=== PATIENT | male | born 1950 | race Caucasian/White ===

== ENCOUNTER 2017-11-20 08:00 | Outpatient (CLI) | payer MEDICARE ==
[2017-11-20 12:23] LABS: ALBUMIN 3.8 g/dL (3.2-5.5); ALBUMIN/GLOBULIN RATIO 1.1 (1.0-2.2); ALKALINE PHOSPHATASE 67 IU/L (42-121); ALT ALANINE AMINOTRANSFERASE 22 IU/L (10-60); AST ASPARTATE AMINOTRANSFERASE 23 IU/L (10-42); BILIRUBIN,TOTAL 0.9 mg/dL (0.2-1.0); BUN - BLOOD UREA NITROGEN 15 mg/dL (6-20); CALCIUM 8.9 mg/dL (8.5-10.3); CARBON DIOXIDE - CO2 28 mmol/L (21-32); CHLORIDE 100 mmol/L (101-111); CHOL/HDL RATIO 4.4 (<5.0); CHOLESTEROL 253 mg/dL; CREATININE 1.2 mg/dL (0.6-1.2); GFR - MDRD 61 (>89); GLUCOSE 95 mg/dL (70-100); HDL CHOLESTEROL 57 mg/dL; LDL CHOLESTEROL,CALCULATED 154 mg/dL; LDL/HDL RATIO 2.7 (<3.6); SODIUM 134 mmol/L (135-145); TOTAL PROTEIN 7.2 g/dL (6.7-8.2); VLDL CHOLESTEROL 42 mg/dL
[2017-11-20 12:38] LABS: BASOPHILS % (AUTO) 0.7 %; EOSINOPHILS # (AUTO) 0.1 10^3/uL (0.0-0.7); EOSINOPHILS % (AUTO) 1.7 %; HGB - HEMOGLOBIN 15.7 g/dL (14.0-18.0); LYMPHOCYTES # (AUTO) 1.6 10^3/uL (1.5-3.5); LYMPHOCYTES % (AUTO) 28.7 %; MEAN CORPUSCULAR HEMOGLOBIN 31.2 pg (27.0-31.0); MEAN CORPUSCULAR HGB CONC 32.7 g/dL (32.0-36.0); MEAN CORPUSCULAR VOLUME 95.4 fL (80.0-94.0); MEAN PLATELET VOLUME 8.2 fL (7.4-11.4); MONOCYTES # (AUTO) 0.6 10^3/uL (0.0-1.0); NEUTROPHILS # (AUTO) 3.3 10^3/uL (1.5-6.6); NEUTROPHILS % (AUTO) 57.9 %; PLT - PLATELET COUNT 288 10^3/uL (130-450); RED BLOOD COUNT 5.04 10^6/uL (4.70-6.10); RED CELL DISTRIBUTION WIDTH 13.6 % (12.0-15.0); WHITE BLOOD COUNT 5.6 x10^3/uL (4.8-10.8)
== END 2017-11-20 08:01 | disposition home or self-care (01) ==
LOC: LAB.WCP 08:00
PROVIDERS: ATTEND Family Medicine
DX: Z79.899 Other long term (current) drug therapy (principal); Z12.5 Encounter for screening for malignant neoplasm of prostate; Z72.0 Tobacco use; Z13.220 Encounter for screening for lipoid disorders
CPT/HCPCS: 36415; 80053; 80061; 85025; G0103; 83721; 84153

== ENCOUNTER 2019-03-10 08:00 | Outpatient (CLI) | payer MEDICARE ==
[2019-03-10 12:24] LABS: BASOPHILS % (AUTO) 0.4 %; EOSINOPHILS # (AUTO) 0.1 10^3/uL (0.0-0.7); EOSINOPHILS % (AUTO) 1.5 %; HGB - HEMOGLOBIN 14.7 g/dL (14.0-18.0); LYMPHOCYTES # (AUTO) 1.5 10^3/uL (1.5-3.5); LYMPHOCYTES % (AUTO) 29.2 %; MEAN CORPUSCULAR HEMOGLOBIN 29.2 pg (27.0-31.0); MEAN CORPUSCULAR HGB CONC 31.4 g/dL (32.0-36.0); MEAN CORPUSCULAR VOLUME 92.9 fL (80.0-94.0); MONOCYTES # (AUTO) 0.5 10^3/uL (0.0-1.0); MONOCYTES % (AUTO) 10.1 %; NEUTROPHILS % (AUTO) 58.2 %; PLT - PLATELET COUNT 318 10^3/uL (130-450); RED BLOOD COUNT 5.04 10^6/uL (4.70-6.10); RED CELL DISTRIBUTION WIDTH 12.9 % (12.0-15.0); WHITE BLOOD COUNT 5.2 x10^3/uL (4.8-10.8)
[2019-03-10 12:59] LABS: ALBUMIN 3.7 g/dL (3.2-5.5); ALBUMIN/GLOBULIN RATIO 1.2 (1.0-2.2); ALKALINE PHOSPHATASE 69 IU/L (42-121); ALT ALANINE AMINOTRANSFERASE 20 IU/L (10-60); AST ASPARTATE AMINOTRANSFERASE 21 IU/L (10-42); BILIRUBIN,TOTAL 0.7 mg/dL (0.2-1.0); BUN - BLOOD UREA NITROGEN 20 mg/dL (6-20); CALCIUM 8.8 mg/dL (8.5-10.3); CARBON DIOXIDE - CO2 27 mmol/L (21-32); CHLORIDE 103 mmol/L (101-111); CHOL/HDL RATIO 5.2 (<5.0); CHOLESTEROL 254 mg/dL; GFR - MDRD 75 (>89); GLUCOSE 97 mg/dL (70-100); HDL CHOLESTEROL 49 mg/dL; LDL CHOLESTEROL,CALCULATED 176 mg/dL; LDL/HDL RATIO 3.6 (<3.6); SODIUM 139 mmol/L (135-145); TOTAL PROTEIN 6.7 g/dL (6.7-8.2); VLDL CHOLESTEROL 29 mg/dL
== END 2019-03-10 23:59 | disposition home or self-care (01) ==
LOC: LAB.WCP 08:00
PROVIDERS: ATTEND Family Medicine
DX: Z00.00 Encounter for general adult medical examination without abnormal findings (principal); Z12.5 Encounter for screening for malignant neoplasm of prostate
CPT/HCPCS: 36415; 80061; 84443; 85025; G0103; 80053; 83721; 84153

== ENCOUNTER 2020-07-13 08:00 | Outpatient (CLI) | payer MEDICARE ==
[2020-07-13 12:32] LABS: BASOPHILS # (AUTO) 0.1 10^3/uL (0.0-0.1); BASOPHILS % (AUTO) 0.7 %; EOSINOPHILS # (AUTO) 0.1 10^3/uL (0.0-0.7); EOSINOPHILS % (AUTO) 1.1 %; HGB - HEMOGLOBIN 15.5 g/dL (14.0-18.0); LYMPHOCYTES # (AUTO) 1.9 10^3/uL (1.5-3.5); LYMPHOCYTES % (AUTO) 27.2 %; MEAN CORPUSCULAR HEMOGLOBIN 29.7 pg (27.0-31.0); MEAN CORPUSCULAR HGB CONC 32.1 g/dL (32.0-36.0); MEAN CORPUSCULAR VOLUME 92.5 fL (80.0-94.0); MEAN PLATELET VOLUME 10.1 fL (7.4-11.4); MONOCYTES # (AUTO) 0.6 10^3/uL (0.0-1.0); MONOCYTES % (AUTO) 8.3 %; NEUTROPHILS # (AUTO) 4.4 10^3/uL (1.5-6.6); NEUTROPHILS % (AUTO) 62.3 %; PLT - PLATELET COUNT 333 10^3/uL (130-450); RED BLOOD COUNT 5.22 10^6/uL (4.70-6.10); RED CELL DISTRIBUTION WIDTH 13.2 % (12.0-15.0)
[2020-07-13 13:13] LABS: ALBUMIN 3.9 g/dL (3.2-5.5); ALBUMIN/GLOBULIN RATIO 1.3 (1.0-2.2); ALKALINE PHOSPHATASE 77 IU/L (42-121); ALT ALANINE AMINOTRANSFERASE 25 IU/L (10-60); AST ASPARTATE AMINOTRANSFERASE 20 IU/L (10-42); BILIRUBIN,TOTAL 0.8 mg/dL (0.2-1.0); BUN - BLOOD UREA NITROGEN 21 mg/dL (6-20); CALCIUM 9.4 mg/dL (8.5-10.3); CARBON DIOXIDE - CO2 23 mmol/L (21-32); CHLORIDE 103 mmol/L (101-111); CHOL/HDL RATIO 4.2 (<5.0); CHOLESTEROL 240 mg/dL; GLUCOSE 111 mg/dL (70-100); HDL CHOLESTEROL 57 mg/dL; LDL CHOLESTEROL,CALCULATED 154 mg/dL; LDL/HDL RATIO 2.7 (<3.6); VLDL CHOLESTEROL 29 mg/dL
== END 2020-07-13 23:59 | disposition home or self-care (01) ==
LOC: LAB.WCP 08:00
PROVIDERS: ATTEND Nurse Practitioner Family
DX: R03.0 Elevated blood-pressure reading, without diagnosis of hypertension (principal); Z72.0 Tobacco use; Z12.5 Encounter for screening for malignant neoplasm of prostate
CPT/HCPCS: 36415; 80053; 80061; 84443; 85025; G0103; 83721; 84153

== ENCOUNTER 2020-10-01 07:23 | Outpatient (CLI) | payer MEDICARE ==
--- NOTE | 2020-10-01 08:40 | XRAY Report ---
PROCEDURE: Lumbar Spine 2 View INDICATIONS: RIGHT SCIATICA TECHNIQUE: 2 views of the lumbar spine were acquired. COMPARISON: None. FINDINGS: No fracture. Anatomic alignment. Mild narrowing of the L4-L5 and L5-S1 disc spaces. Multilevel spondy lytic/degenerative endplate changes. Diffuse facet arthropathy. Soft tissues: Overlying bowel gas pattern is normal. No suspicious soft tissue calcifications. IMPRESSION: Lower lumbar spondylosis and facet arthropathy. Reviewed by: Ash Choi MD on 10/01/2020 8:39 AM PDT Approved by: Ash Choi MD on 10/01/2020 8:39 AM PDT Station ID: [id number]
== END 2020-10-01 07:24 | disposition home or self-care (01) ==
LOC: DI 07:23
PROVIDERS: ATTEND Physician Assistant Medical
DX: M47.816 Spondylosis without myelopathy or radiculopathy, lumbar region (principal)

== ENCOUNTER 2020-10-11 07:07 | Outpatient (CLI) | payer MEDICARE ==
--- NOTE | 2020-10-11 11:05 | MRI Report ---
PROCEDURE: Lumbar Spine W/O INDICATIONS: RT SCIATICA TECHNIQUE: Noncontrast sagittal T1 spin echo and T2 fast echo, sagittal STIR, axial T1 and T2 fast spin echo thr ough the lumbar spine. In cases with scoliosis, additional coronal T2 fast spin echo may be performe d. COMPARISON: Plain films dated 10/01/2020. FINDINGS: Image quality: Excellent. Alignment and Curvature: 5 lumbar type vertebral bodies are present by plain film. Mild, grade 1 ret rolisthesis of L3 on L4, L4 on L5, and L5 on S1. There is loss of normal lumbar lordosis. Bone Marrow: Marrow is of normal overall signal. No acute vertebral body compression fractures. Th ere is minimal reactive signal within the end plates adjacent to the L2-L3 and L4-L5 intervertebral d iscs. Moderate reactive signal within the end plates adjacent to the L5-S1 intervertebral disc. Spinal Cord: Conus medullaris terminates at the upper L2 level. Visualized cord demonstrates normal signal and size. Paraspinous Soft Tissues: No paravertebral masses. T12-L1: Mild disc height loss and desiccation. Mild facet and ligament flavum hypertrophy. No signif icant canal, nor foraminal stenosis. L1-L2: Mild disc desiccation and diffuse disc bulge. Mild facet and ligament flavum hypertrophy. M ild canal stenosis. No foraminal stenosis. L2-L3: Mild disc desiccation and diffuse disc bulge. Mild facet and ligament flavum hypertrophy. M ild canal stenosis. Mild bilateral foraminal stenosis. L3-L4: Mild disc desiccation and diffuse disc bulge. Mild facet and ligament flavum hypertrophy. Mi ld epidural lipomatosis. Mild canal stenosis. Mild bilateral foraminal stenosis. L4-L5: Mild disc desiccation and diffuse disc bulge. Mild facet and ligament flavum hypertrophy. Mi ld canal stenosis. Mild bilateral foraminal stenosis. L5-S1: Moderate disc height loss and desiccation. Mild diffuse disc bulge. Mild facet and ligament flavum hypertrophy. Mild canal stenosis. Moderate to severe right and mild left foraminal stenosis. M ild right L5 nerve root compression. Right lateral recess stenosis with possible mild compression of the right S1 nerve root within the lateral recess. IMPRESSION: 1. Multilevel degenerative disc and facet disease, in addition to epidural lipomatosis and ligamentum flavum hypertrophy. 2. Mild multilevel canal stenoses. 3. Multilevel foraminal stenoses, worst at L5-S1 on the right where there is associated intraforamina l nerve root compression. 4. Right lateral recess stenosis at L5-S1 with possible mild compression of the right S1 nerve root. 5. Recommend correlation with clinical symptoms to ascertain relevance of these findings. Reviewed by: Saima Licona MD on 10/11/2020 11:04 AM PDT Approved by: Saima Licona MD on 10/11/2020 11:04 AM PDT Station ID: [id number]
== END 2020-10-11 07:08 | disposition home or self-care (01) ==
LOC: DI 07:07
PROVIDERS: ATTEND Physician Assistant Medical
DX: M47.816 Spondylosis without myelopathy or radiculopathy, lumbar region (principal); M47.817 Spondylosis without myelopathy or radiculopathy, lumbosacral region; M51.36 Other intervertebral disc degeneration, lumbar region; M48.061 Spinal stenosis, lumbar region without neurogenic claudication; M48.07 Spinal stenosis, lumbosacral region; M51.17 Intervertebral disc disorders with radiculopathy, lumbosacral region

== ENCOUNTER 2021-03-25 07:14 | Outpatient (CLI) | payer MEDICARE ==
[2021-03-25 12:04] LABS: ALBUMIN 3.8 g/dL (3.2-5.5); ALBUMIN/GLOBULIN RATIO 1.2 (1.0-2.2); ALKALINE PHOSPHATASE 116 IU/L (42-121); ALT ALANINE AMINOTRANSFERASE 29 IU/L (10-60); AST ASPARTATE AMINOTRANSFERASE 22 IU/L (10-42); BILIRUBIN,TOTAL 0.6 mg/dL (0.2-1.0); BUN - BLOOD UREA NITROGEN 22 mg/dL (6-20); CALCIUM 9.1 mg/dL (8.5-10.3); CARBON DIOXIDE - CO2 27 mmol/L (21-32); CHLORIDE 102 mmol/L (101-111); CHOL/HDL RATIO 4.9 (<5.0); CHOLESTEROL 226 mg/dL; GFR - MDRD 74 (>89); GLUCOSE 110 mg/dL (70-100); HDL CHOLESTEROL 46 mg/dL; LDL CHOLESTEROL,CALCULATED 152 mg/dL; LDL/HDL RATIO 3.3 (<3.6); POTASSIUM 4.5 mmol/L (3.5-5.0); SODIUM 139 mmol/L (135-145); TRIGLYCERIDES 140 mg/dL; VLDL CHOLESTEROL 28 mg/dL
== END 2021-03-25 23:59 | disposition home or self-care (01) ==
LOC: LAB.WCP 07:14
PROVIDERS: ATTEND Physician Assistant Medical
DX: E78.5 Hyperlipidemia, unspecified (principal)
CPT/HCPCS: 36415; 80053; 80061; 83721

== ENCOUNTER 2021-05-10 08:00 | Outpatient (CLI) | payer MEDICARE ==
[2021-05-10 17:47] LABS: BASOPHILS # (AUTO) 0.1 10^3/uL (0.0-0.1); BASOPHILS % (AUTO) 0.7 %; EOSINOPHILS # (AUTO) 1.4 10^3/uL (0.0-0.7); EOSINOPHILS % (AUTO) 10.6 %; HCT - HEMATOCRIT 43.8 % (42.0-52.0); HGB - HEMOGLOBIN 13.6 g/dL (14.0-18.0); LYMPHOCYTES # (AUTO) 1.7 10^3/uL (1.5-3.5); LYMPHOCYTES % (AUTO) 12.5 %; MEAN CORPUSCULAR HEMOGLOBIN 27.1 pg (27.0-31.0); MEAN CORPUSCULAR HGB CONC 31.1 g/dL (32.0-36.0); MEAN CORPUSCULAR VOLUME 87.3 fL (80.0-94.0); MEAN PLATELET VOLUME 10.3 fL (7.4-11.4); MONOCYTES # (AUTO) 1.5 10^3/uL (0.0-1.0); MONOCYTES % (AUTO) 10.6 %; NEUTROPHILS # (AUTO) 8.9 10^3/uL (1.5-6.6); NEUTROPHILS % (AUTO) 64.9 %; PLT - PLATELET COUNT 431 10^3/uL (130-450); RED BLOOD COUNT 5.02 10^6/uL (4.70-6.10); RED CELL DISTRIBUTION WIDTH 12.6 % (12.0-15.0); WHITE BLOOD COUNT 13.6 x10^3/uL (4.8-10.8)
[2021-05-10 17:59] LABS: SLIDE REVIEW? Indicated
[2021-05-10 18:09] LABS: DIFFERENTIAL COMMENT MANUAL=AUTO DIFF; PLATELET ESTIMATE, MANUAL NORMAL (130-450,000) (NORMAL); PLATELET MORPHOLOGY NORMAL APPEARANCE (NORMAL); RBC MORPHOLOGY (MULTIPLE) NORMAL APPEARANCE (NORMAL)
[2021-05-10 20:20] LABS: ALBUMIN 3.3 g/dL (3.2-5.5); ALBUMIN/GLOBULIN RATIO 0.8 (1.0-2.2); BILIRUBIN,TOTAL 1.7 mg/dL (0.2-1.0); CALCIUM 8.9 mg/dL (8.5-10.3); POTASSIUM 4.6 mmol/L (3.5-5.0); TOTAL PROTEIN 7.7 g/dL (6.7-8.2)
== END 2021-05-10 23:59 ==
LOC: LAB.N 08:00
PROVIDERS: ATTEND Physician Assistant Medical
DX: R82.2 Biliuria (principal)
CPT/HCPCS: 36415; 80053; 83690; 85025

== ENCOUNTER 2021-05-17 19:47 | Outpatient (CLI) | payer MEDICARE | END 2021-05-17 19:48 | disposition critical access hospital (66) | LOC: EMS 19:47 | DX: R10.9 Unspecified abdominal pain (principal) | CPT/HCPCS: A0425; A0429 ==

== ENCOUNTER 2021-05-17 20:06 | Emergency (ER) | payer MEDICARE ==
[2021-05-17 20:24] LABS: BASOPHILS % (AUTO) 0.7 %; EOSINOPHILS % (AUTO) 9.3 %; HCT - HEMATOCRIT 41.3 % (42.0-52.0); HGB - HEMOGLOBIN 13.5 g/dL (14.0-18.0); LYMPHOCYTES % (AUTO) 8.2 %; MEAN CORPUSCULAR HEMOGLOBIN 27.3 pg (27.0-31.0); MEAN CORPUSCULAR HGB CONC 32.7 g/dL (32.0-36.0); MEAN CORPUSCULAR VOLUME 83.6 fL (80.0-94.0); MEAN PLATELET VOLUME 9.9 fL (7.4-11.4); MONOCYTES % (AUTO) 9.2 %; NEUTROPHILS % (AUTO) 71.7 %; PLT - PLATELET COUNT 405 10^3/uL (130-450); RED BLOOD COUNT 4.94 10^6/uL (4.70-6.10); RED CELL DISTRIBUTION WIDTH 13.1 % (12.0-15.0)
[2021-05-17 20:27] LABS: ABNORMAL LYMPHS % (MANUAL) 0 %
--- NOTE | 2021-05-17 20:34 | ED Physician Documentation ---
PD HPI ABD PAIN - Stated complaint Stated Complaint: RIGHT FLANK PAIN, LIVER ISSUES - Chief complaint Chief Complaint: Abd Pain - History obtained from History obtained from: Patient - History of Present Illness Timing - onset: How many weeks ago (2-3 weeks) Timing - details: Gradual onset, Waxing and waning Pain level now: 4 Quality: Pain Location: RUQ Radiation: Lower back, Right flank Improved by: Other (no ameliorating factors) Worsened by: Palpation Associated symptoms: No: Fever (has had elevated temperatures but Tmax 99.8), Nausea, Vomiting, Diarrhea, Constipation, Melena, Hematochezia Similar symptoms before: No diagnosis Recently seen: Clinic - Additional information Additional information: c/o 2-3 weeks of epigastric and RUQ pain that radiates around right flank to right mid/lower back, episodic. Also notes night sweats and dark urine. He was evaluated in outpatient setting recently with blood tests performed and was to have outpatient CT A/P (patient says he has been calling to schedule this but has not been able to contact anyone at the number he was provided to schedule). He was to then follow up in a few days with his provider to discuss results of CT and blood tests. He presents at this time due to increasing abdominal pain. He is COVID vaccinated. Denies h/o similar symptoms. Review of Systems Constitutional: reports: Sweats. denies: Fever (Tmax 99.8), Chills Cardiac: reports: Reviewed and negative Respiratory: reports: Reviewed and negative GI: reports: Abdominal Pain. denies: Nausea, Vomiting, Constipation, Diarrhea, Hematemesis, Bloody / black stool : denies: Dysuria PD PAST MEDICAL HISTORY - Past Medical History Cardiovascular: None Respiratory: None Endocrine/Autoimmune: None GI: None : None HEENT: None Psych: None Musculoskeletal: None Derm: None - Past Surgical History General: Other Derm: Other - Present Medications Home Medications: Ambulatory Orders Medication Instructions Recorded Confirmed Naproxen [Naprosyn] 500 mg PO BID PRN 06/30/15 07/23/15 LORazepam [Ativan] 0.5 - 1 mg PO Q6H PRN #14 tablet 05/17/21 - Allergies Allergies/Adverse Reactions: Allergies Allergy/AdvReac Type Severity Reaction Status Date / Time codeine Allergy Rash Verified 05/17/21 20:10 PD ED PE NORMAL - Vitals Vital signs reviewed: Yes - General General: Alert and oriented X 3, No acute distress, Well developed/nourished - Cardiac Cardiac: No murmur - Respiratory Respiratory: No respiratory distress, Clear bilaterally - Abdomen Abdomen: Soft, Non distended, Other (mild TTP RUQ and epigastrium without rebound or guarding) - Derm Derm: No rash PD ED PE EXPANDED - Cardiac Cardiac: Tachy, Regular Rhythm Results - Vitals Vitals: Oxygen O2 Source Room air - Labs Labs: Laboratory Tests 05/17/21 05/17/21 05/17/21 20:16 20:16 20:38 WBC 18.0 H RBC 4.94 Hgb 13.5 L Hct 41.3 L MCV 83.6 MCH 27.3 MCHC 32.7 RDW 13.1 Plt Count 405 MPV 9.9 Neut # (Auto) Not Reportable Lymph # (Auto) Not Reportable Miller # (Auto) Not Reportable Eos # (Auto) Not Reportable Baso # (Auto) Not Reportable Absolute Nucleated RBC Not Reportable Total Counted 100 Band Neuts % (Manual) 1 Abnorm Lymph % (Manual) 0 Metamyelocytes % 1 H Nucleated RBC % Not Reportable Neutrophils # (Manual) 13.1 H Lymphocytes # (Manual) 1.3 L Monocytes # (Manual) 1.4 H Eosinophils # (Manual) 1.8 H Basophils # (Manual) 0.2 H Differential Comment MANUAL DIFFERENTIAL WBC Morphology NORMAL APPEARANCE Platelet Estimate NORMAL (130-450,000) Platelet Morphology NORMAL APPEARANCE RBC Morph Micro Appear NORMAL APPEARANCE Sodium 125 L Potassium 4.4 Chloride 89 L Carbon Dioxide 24 Anion Gap 12.0 BUN 14 Creatinine 0.9 Estimated GFR (MDRD) 84 L Glucose 125 H Calcium 8.5 Total Bilirubin 2.1 H AST 79 H ALT 87 H Alkaline Phosphatase 472 H Total Protein 7.2 Albumin 3.1 L Globulin 4.1 Albumin/Globulin Ratio 0.8 L Lipase 22 Urine Color DARK YELLOW Urine Clarity V Urine pH 5.5 Ur Specific [place] 1.020 Urine Protein NEGATIVE Urine Glucose (UA) NEGATIVE Urine Ketones 15 H Urine Occult Blood NEGATIVE Urine Nitrite NEGATIVE Urine Bilirubin NEGATIVE Urine Urobilinogen 1 (NORMAL) Ur Leukocyte Esterase NEGATIVE Ur Microscopic Review NOT INDICATED Urine Culture Comments NOT INDICATED - Rads (name of study) CT A/P with IV contrast Radiology: Prelim report reviewed, See rad report PD MEDICAL DECISION MAKING - ED course Complexity details: reviewed results, re-evaluated patient, considered differential, d/w patient ED course: c/o few weeks of abdominal pain. Lab abnormalities tonight are most notable for elevated LFTs (bilirubin, AST, ALT), hyponatremia, and leukocytosis. CT A/P reveals pancreatic mass and multiple liver masses; findings are most compatible with malignancy with liver metastases. He reports adequate pain relief with IV toradol. Results discussed with patient, suspected diagnosis explained, and emphasis placed on urgent need for follow up for further testing for definitive/confirmatory diagnosis (likely will need biopsy). I anticipate (appropriate) anxiety and possible difficulty sleeping over the next several days, given this sudden and potentially overwhelming information and thus provided him with lorazepam and rx for same in case he needs this for short-term use. I discussed the case and test results with YARI Brennan so as to potentiate expeditious follow up. Departure - Departure Disposition: 01 Home, Self Care Clinical Impression: Pancreatic cancer metastasized to liver Condition: Good Instructions: ED Tumor [facility] Follow-Up: Fannie Brennan PA-C [Primary Care Provider] - (I discussed your CT results with YARI Brennan. Call in the morning to arrange for expeditious follow up) Prescriptions: LORazepam [Ativan] 0.5 - 1 mg PO Q6H PRN #14 tablet PRN Reason: Anxiety Comments: The CT scan has very concerning findings: there is a pancreatic mass and multiple liver masses. These findings are most concerning for pancreatic cancer with metastasis (spread) to the liver. As we discussed, this diagnosis CANNOT be made simply on the basis of a single CT study. The means of confirmation of the diagnosis, as well as what options are appropriate for treatment, would typically be through getting a biopsy of the mass(es). You will need to follow up with your primary care provider for referral and coordination with the appropriate specialist(s). I have electronically submitted a prescription for lorazepam (anti-anxiety medication) to [facility] in [place]; this is to be taken as needed (per instructions on the prescription bottle) for insomnia. Discharge Date/Time: 05/17/21 23:13
[2021-05-17 20:35] LABS: ALBUMIN 3.1 g/dL (3.2-5.5); ALBUMIN/GLOBULIN RATIO 0.8 (1.0-2.2); BILIRUBIN,TOTAL 2.1 mg/dL (0.2-1.0); CALCIUM 8.5 mg/dL (8.5-10.3); CREATININE 0.9 mg/dL (0.6-1.2); POTASSIUM 4.4 mmol/L (3.5-5.0); TOTAL PROTEIN 7.2 g/dL (6.7-8.2)
[2021-05-17 20:42] LABS: GLUCOSE, URINE (UA) NEGATIVE (NEGATIVE); KETONES,URINE (UA) 15 mg/dL (NEGATIVE); LEUKOCYTE ESTERASE, URINE NEGATIVE (NEGATIVE); NITRITE,URINE NEGATIVE (NEGATIVE); OCCULT BLOOD,URINE NEGATIVE (NEGATIVE); PH,URINE 5.5 PH (5.0-7.5); PROTEIN,URINE NEGATIVE (NEGATIVE); UROBILINOGEN,URINE 1 (NORMAL) E.U./dL (NORMAL)
[2021-05-17 20:46] LABS: BILIRUBIN,URINE NEGATIVE (NEGATIVE); CLARITY,URINE V (CLEAR); ICTOTEST,URINE NEGATIVE
[2021-05-17 21:00] LABS: BAND NEUTROPHILS % (MANUAL) 1 %; BASOPHILS # (MANUAL) 0.2 10^3/uL (0-0.1); BASOPHILS % (MANUAL) 1 %; DIFFERENTIAL COMMENT MANUAL DIFFERENTIAL; EOSINOPHILS # (MANUAL) 1.8 10^3/uL (0-0.7); LYMPHOCYTES # (MANUAL) 1.3 10^3/uL (1.5-3.5); LYMPHOCYTES % (MANUAL) 7 %; METAMYELOCYTES % (MANUAL) 1 %; MONOCYTES # (MANUAL) 1.4 10^3/uL (0.0-1.0); NEUTROPHILS # (MANUAL) 13.1 10^3/uL (1.5-6.6); PLATELET ESTIMATE, MANUAL NORMAL (130-450,000) (NORMAL); PLATELET MORPHOLOGY NORMAL APPEARANCE (NORMAL); RBC MORPHOLOGY (MULTIPLE) NORMAL APPEARANCE (NORMAL); WBC MORPHOLOGY (MULTIPLE) NORMAL APPEARANCE (NORMAL)
[2021-05-17] MEDS: KETOROLAC 30 MG/ML VIAL IVP STA (21:03)
[2021-05-17] MEDS ORDERED: IOPAMIDOL-300 100 ML VIAL ONE (21:07)
[2021-05-17] MEDS: IOPAMIDOL-300 100 ML VIAL IVP ONE (21:25)
--- NOTE | 2021-05-17 21:45 | CT Report ---
PROCEDURE: Abdomen/Pelvis W INDICATIONS: RUQ pain, abnormal LFTs CONTRAST: IV CONTRAST: Isovue 300 ml: 100 PO CONTRAST: *NO PO CONTRAST TECHNIQUE: After the administration of contrast, 5 mm thick sections acquired from the diaphragms to the sym physis. 5 mm thick coronal and sagittal reformats were acquired. For radiation dose reduction, the following was used: automated exposure control, adjustment of mA and/or kV according to patient size . COMPARISON: None. FINDINGS: Image quality: Excellent. ABDOMEN: Lung bases: Moderate emphysema. Lung bases are clear. Heart size is normal. Small hiatal hernia Solid organs: Liver is normal in size. There are multiple hepatic hypodensities compatible with meta stasis. The largest mass is seen in segment 4, measuring 7.9 x 6.5 cm. Spleen is normal in size and enhancement. Small enhancing nodules around the spleen are likely splen ules. Gallbladder is contracted. Biliary system is non dilated. There is a mass in the pancreatic head being 2.8 cm. There is atrophy and pancreatic duct dilation of the pancreatic tail. No adrenal nodules. Kidneys demonstrate normal size and enhancement. There is a 5 mm nonobstructive stone in the left kidney. No hydronephrosis Peritoneum and bowel: Bowel loops demonstrate normal wall thickness and caliber. Diverticulosis wit hout diverticulitis. No free fluid or air. Nodes and vessels: No retroperitoneal or mesenteric adenopathy by size criteria. Aorta and inferior vena cava are normal in size. Miscellaneous: No ventral hernias. PELVIS: Genitourinary: Bladder wall thickness is normal. Miscellaneous: No inguinal hernias or adenopathy. Bones: No suspicious bony lesions. No vertebral body compression fractures. IMPRESSION: 1. A 2.8 cm mass in the pancreatic head compatible with hepatic cancer. 2. Extensive liver metastases. 3. Diverticulosis without evidence for colitis. 4. A 5 mm nonobstructive stone in left kidney. The result was discussed with Dr. Martinez. Reviewed by: Andrei Laura MD on 05/17/2021 9:44 PM PST Approved by: Andrei Laura MD on 05/17/2021 9:44 PM PST Station ID: [id number]
[2021-05-17 22:45] VITALS: BP 159/92
[2021-05-17] MEDS: LORazepam 0.5 MG TABLET PO STA (22:57)
== END 2021-05-17 23:13 | disposition home or self-care (01) ==
LOC: EDBD → ED 20:06
DX: C25.9 Malignant neoplasm of pancreas, unspecified (principal); C78.7 Secondary malignant neoplasm of liver and intrahepatic bile duct; R79.89 Other specified abnormal findings of blood chemistry
CPT/HCPCS: 36415; 74177; 80053; 81003; 83690; 85025; 96374; 99284; A9270; Q9967; 81001; 87086

== ENCOUNTER 2021-05-20 07:44 | Outpatient (CLI) | payer MEDICARE ==
[2021-05-20] MEDS ORDERED: LACTATED RINGERS 1,000 ML IV ONE (08:23)
[2021-05-20 08:42] LABS: INR 1.8 (0.8-1.2); PT - PROTHROMBIN TIME 19.7 secs (9.9-12.6)
[2021-05-20 08:52] LABS: PARTIAL THROMBOPLASTIN TIME 35.3 secs (24.9-33.3)
[2021-05-20] MEDS ORDERED: fentaNYL 100 MCG/2 ML VIAL ONE (09:08)
[2021-05-20] MEDS ORDERED: MIDAZOLAM 2 MG/2 ML VIAL ONE (09:08)
[2021-05-20] MEDS ORDERED: SODIUM CHLORIDE 0.9% 1,000 ML IV ONE ×2 (10:50→12:44)
[2021-05-20] MEDS ORDERED: ACETAMINOPHEN 1,000 MG/100 ML 100 ML IV ONE (13:23)
[2021-05-20 15:41] VITALS: BP 132/70
--- NOTE | 2021-05-20 16:19 | CT Report ---
PROCEDURE: LIVER BX PERC Sedation analgesia for 30 minutes. Please see nursing records. Preprocedure labs demonstrated an INR of 1.8. One unit of FFP was transfused immediately prior to the procedure. INDICATIONS: LIVER MASS, PANCREATIC MASS TECHNIQUE: The indications, alternatives, benefits, risks, and possible complications of the procedure were comm unicated to the patient. Informed written consent from the patient was obtained and placed in the art. Continuous EKG and hemodynamic monitoring was started by trained personnel. For radiation dose reduction, the following was used: automated exposure control, adjustment of mA and/or kV according to patient size. The patient was brought to the CT suite and miter operator spiral CT imaging was performed with localization g rid. The appropriate site for percutaneous access to the biopsy target was marked, was prepped and d raped sterilely, and was infused with local anaesthesia. Under CT guidance, a core biopsy trocar and needle set was advanced to the biopsy target, and specimen(s) were obtained. The trocar and needle were then removed, and the patient was sent for post-procedure monitoring. COMPARISON: CT 05/17/2021 FINDINGS: Biopsy site: Right lobe liver mass in segment Needle: 20 gauge biopsy needle with introducer trocar. Number of passes: 4 Medications: 1% lidocaine for local anaesthesia. IV Fentanyl and Versed for conscious sedation for 30 minutes (see nursing record). Complications: None. IMPRESSION: Successful CT-guided biopsy of one of multiple liver masses.. Reviewed by: Irma Novak MD on 05/20/2021 4:18 PM PST Approved by: Irma Novak MD on 05/20/2021 4:18 PM PST Station ID: [id number]
== END 2021-05-20 07:45 | disposition home or self-care (01) ==
LOC: DI 07:44
PROVIDERS: ATTEND Physician Assistant Medical
DX: C25.9 Malignant neoplasm of pancreas, unspecified (principal); C78.7 Secondary malignant neoplasm of liver and intrahepatic bile duct
CPT/HCPCS: 36415; 47000; 77012; 85610; 85730; 86850; 86900; 86901; 88307; 88331; 88342; 88344; J0131; J7120; P9017

== ENCOUNTER 2021-05-26 11:06 | Outpatient (CLI) | payer MEDICARE | END 2021-05-26 23:59 | disposition home or self-care (01) | LOC: LAB.WCP 11:06 | PROVIDERS: ATTEND Internal Medicine | DX: R16.0 Hepatomegaly, not elsewhere classified (principal); K86.89 Other specified diseases of pancreas | CPT/HCPCS: 36415; 81599; 82105; 85610; 85730; 86301 ==

== ENCOUNTER 2021-05-27 19:08 | Emergency (ER) | payer MEDICARE ==
[2021-05-27] MEDS ORDERED: SODIUM CHLORIDE 0.9% 1,000 ML IV STA (19:27)
[2021-05-27] MEDS ORDERED: LACTATED RINGERS 1,000 ML IV ONE (19:28)
[2021-05-27] MEDS ORDERED: ONDANSETRON 4 MG/2 ML VIAL IVP STA (19:28)
--- NOTE | 2021-05-27 19:28 | ED Physician Documentation ---
PD HPI ABD PAIN - Stated complaint Stated Complaint: PANCREATIC CA, VOMITING - Chief complaint Chief Complaint: Abd Pain - History obtained from History obtained from: Patient - Additional information Additional information: This is a 70-year-old gentleman who unfortunately was recently diagnosed with stage IV pancreatic cancer. He had a CT initially on the showing this and then subsequently had a CT-guided biopsy 3 days ago with poorly differentiated adenocarcinoma. His pain is controlled with hydrocodone but he presents tonight because he has had severe vomiting. He is not on any antiemetics. He is seeing oncology right after New Year's but understands that the prognosis is grim. Review of Systems Constitutional: denies: Fever, Chills GI: reports: Abdominal Pain, Nausea, Vomiting. denies: Diarrhea PD PAST MEDICAL HISTORY - Past Medical History Cardiovascular: None Respiratory: None Endocrine/Autoimmune: None GI: Other : None HEENT: None Psych: Depression, Anxiety Musculoskeletal: None Derm: Other - Past Surgical History General: Other Derm: Skin cancer surgery - Present Medications Home Medications: Ambulatory Orders Medication Instructions Recorded Confirmed Naproxen [Naprosyn] 500 mg PO BID PRN 06/30/15 05/19/21 LORazepam [Ativan] 0.5 - 1 mg PO Q6H PRN #14 tablet 05/17/21 05/19/21 buPROPion [Wellbutrin Sr] 200 mg PO DAILY 05/19/21 05/19/21 Ondansetron Odt [Zofran] 4 mg TL Q6H PRN #30 tablet 05/27/21 - Allergies Allergies/Adverse Reactions: Allergies Allergy/AdvReac Type Severity Reaction Status Date / Time codeine Allergy Rash Verified 05/27/21 19:18 PD ED PE NORMAL - Vitals Vital signs reviewed: Yes - General General: Alert and oriented X 3, No acute distress - Cardiac Cardiac: RRR, No murmur - Respiratory Respiratory: No respiratory distress - Abdomen Abdomen: Normal bowel sounds, Soft, Other (Tender in the right upper quadrant without surgical signs) - Derm Derm: Normal color, Warm and dry - Neuro Neuro: Alert and oriented X 3, Normal speech Results - Vitals Vitals: Vital Signs - 24 hr 05/27/21 05/27/21 05/27/21 19:15 20:09 21:43 Temperature 36.3 C L Heart Rate 111 H 83 78 Respiratory 16 16 24 Rate Blood Pressure 137/94 H 145/89 H 152/73 H O2 Saturation 96 94 Oxygen O2 Source Room air - Labs Labs: Laboratory Tests 05/27/21 05/27/21 19:29 20:32 Sodium 126 L Potassium 4.7 Chloride 91 L Carbon Dioxide 20 L Anion Gap 15.0 H BUN 20 Creatinine 0.9 Estimated GFR (MDRD) 84 L Glucose 120 H Calcium 8.3 L Urine Color DARK YELLOW Urine Clarity CLEAR Urine pH 5.0 Ur Specific [place] 1.025 Urine Protein TRACE Urine Glucose (UA) NEGATIVE Urine Ketones 15 H Urine Occult Blood NEGATIVE Urine Nitrite NEGATIVE Urine Bilirubin MODERATE H Urine Urobilinogen 4 H Ur Leukocyte Esterase NEGATIVE Ur Microscopic Review NOT INDICATED Urine Culture Comments NOT INDICATED PD MEDICAL DECISION MAKING - ED course ED course: 70-year-old gentleman with recent diagnosis of pancreatic cancer which is metastatic to liver not undergoing treatment yet. He presents with vomiting and evidence of dehydration. Feeling much better after IV fluids and Zofran and remained nontender prior to discharge and passed p.o. challenge. He was eager to go home. Departure - Departure Disposition: Home, Self Care Clinical Impression: Pancreatic cancer metastasized to liver Vomiting Qualifiers: Vomiting type: unspecified Nausea presence: with nausea Qualified Code(s): R11.2 - Nausea with vomiting, unspecified Condition: Good Record reviewed to determine appropriate education?: Yes Instructions: ED Nausea Vomiting Prescriptions: Ondansetron Odt [Zofran] 4 mg TL Q6H PRN #30 tablet PRN Reason: Nausea / Vomiting Comments: Follow-up with oncology as scheduled. Return anytime for new or worsening or intractable symptoms. Discharge Date/Time: 05/27/21 21:49
[2021-05-27 19:48] LABS: CALCIUM 8.3 mg/dL (8.5-10.3); CREATININE 0.9 mg/dL (0.6-1.2); POTASSIUM 4.7 mmol/L (3.5-5.0)
[2021-05-27] MEDS ORDERED: HYDROmorphone 1 MG/ML CARPUJECT IVP STA (19:49)
[2021-05-27 21:12] LABS: GLUCOSE, URINE (UA) NEGATIVE (NEGATIVE); KETONES,URINE (UA) 15 mg/dL (NEGATIVE); LEUKOCYTE ESTERASE, URINE NEGATIVE (NEGATIVE); NITRITE,URINE NEGATIVE (NEGATIVE); OCCULT BLOOD,URINE NEGATIVE (NEGATIVE); PROTEIN,URINE TRACE mg/dL (NEGATIVE); UROBILINOGEN,URINE 4 E.U./dL (NORMAL)
[2021-05-27 21:14] LABS: BILIRUBIN,URINE MODERATE (NEGATIVE); CLARITY,URINE CLEAR (CLEAR); ICTOTEST,URINE POSITIVE
[2021-05-27] MEDS ORDERED: ONDANSETRON ODT 4 MG Prepack 2 TL STA (21:38)
[2021-05-27 21:44] VITALS: BP 152/73
== END 2021-05-27 21:49 | disposition home or self-care (01) ==
LOC: ED 19:08
DX: R11.2 Nausea with vomiting, unspecified (principal); E86.0 Dehydration; C25.9 Malignant neoplasm of pancreas, unspecified; C78.7 Secondary malignant neoplasm of liver and intrahepatic bile duct
CPT/HCPCS: 36415; 80048; 81003; 96361; 96374; 96375; 99283; J1170; J7120; 80053; 81001; 83690; 85025; 87086

== ENCOUNTER 2021-06-10 13:12 | Emergency (ER) | payer MEDICARE ==
--- NOTE | 2021-06-10 15:10 | ED Physician Documentation ---
PD HPI LOWER EXT INJURY - Stated complaint Stated Complaint: SWOLLEN L LEG - Chief complaint Chief Complaint: Ext Problem - History obtained from History obtained from: Patient - History of Present Illness PD HPI LOW EXT INJURY LOCATION: Left, Lower leg Type of injury: Other (few days of increasing swelling and pain in lower left leg. No known injury. Denies chest pain nor dyspnea.). No: Fall, Twist Timing - onset: How many days ago (few) Timing - duration: Days Timing - details: Gradual onset, Still present Worsened by: Palpating, Other (walking hurts calf area) Associated symptoms: Swelling. No: Weakness, Numbness Similar symptoms before: Has not had sx before Recently seen: Clinic ([facility] [place] regarding his cancer treatment.) Review of Systems Constitutional: denies: Fever, Chills Nose: denies: Rhinorrhea / runny nose, Congestion Throat: denies: Sore throat Cardiac: denies: Chest pain / pressure, Palpitations Respiratory: denies: Dyspnea, Cough GI: reports: Abdominal Pain (ongoing due to pancreatic CA.), Nausea, Diarrhea. denies: Vomiting Skin: denies: Abrasion (s), Laceration (s) Musculoskeletal: reports: Extremity swelling PD PAST MEDICAL HISTORY - Past Medical History Cardiovascular: None Respiratory: None Endocrine/Autoimmune: None GI: Other : None HEENT: None Psych: Depression, Anxiety Musculoskeletal: None Derm: Other Other Past Medical History: no history of blood clots. - Past Surgical History General: Other Derm: Skin cancer surgery - Present Medications Home Medications: Ambulatory Orders Medication Instructions Recorded Confirmed LORazepam [Ativan] 0.5 - 1 mg PO Q6H PRN #14 tablet 05/17/21 06/10/21 buPROPion [Wellbutrin Sr] 200 mg PO DAILY 05/19/21 06/10/21 Ondansetron Odt [Zofran] 4 mg TL Q6H PRN #30 tablet 05/27/21 06/10/21 Hydrocodone/Acetaminophen 1 each PO DAILY PM 06/07/21 06/10/21 [Hydrocodone-Acetamin 2.5-325] Melatonin/Pyridoxine [Melatonin 5 1 each PO DAILY PM 06/07/21 06/10/21 mg Tablet] Apixaban [Eliquis] 5 mg PO BID 20 Days #40 tablet 06/10/21 - Allergies Allergies/Adverse Reactions: Allergies Allergy/AdvReac Type Severity Reaction Status Date / Time codeine Allergy Rash Verified 06/10/21 15:29 - Social History Does the pt smoke?: No Smoking Status: Former smoker PD ED PE NORMAL - Vitals Vital signs reviewed: Yes (not tachycardic and normal sats. ) - General General: Alert and oriented X 3, No acute distress, Well developed/nourished - Cardiac Cardiac: RRR, No murmur - Respiratory Respiratory: Clear bilaterally - Derm Derm: Normal color, Warm and dry - Extremities Extremities: No tenderness to palpate, Normal ROM s pain, Other (right lower leg and calf not tedner and no swelling. Left with moderate swelling and is [id number] in mid/upper calf. ) - Neuro Neuro: Alert and oriented X 3, No motor deficit, Normal speech Eye Opening: Spontaneous Motor: Obeys Commands Verbal: Oriented GCS Score: 15 Results - Vitals Vitals: Vital Signs - 24 hr 06/10/21 06/10/21 13:24 16:16 Temperature 36.1 C L Heart Rate 93 99 Respiratory 16 Rate Blood Pressure 114/71 105/99 H O2 Saturation 97 Oxygen O2 Source Room air - Rads (name of study) duplex left leg Radiology: Prelim report reviewed (extensive DVT in lower extremity.), See rad report PD MEDICAL DECISION MAKING - ED course Complexity details: reviewed results (DVT in left leg. Patient had had CT chest to eval for mets of his CA and the reading was not done at time of ER eval (he went from CT to ER to eval of his leg). ), considered differential, d/w patient, d/w senior treasury consultant [place] [place] and [facility] so I could discuss with his Oncologist. NO answer back nor from client development consultant provider after over an hour, so discharged patient on Eliquis (it can be changed if his providers prefer another med). He appears stable for outpt therapy. ) ED course: Subsequent review of chest CT report shows small right upper PE without signs of heart strain. Departure - Departure Disposition: 01 Home, Self Care Clinical Impression: Left leg swelling DVT (deep venous thrombosis) Qualifiers: DVT location: lower extremity Affected thrombotic vein of extremity: unspecified vein of extremity Chronicity: acute Laterality: left Qualified Code(s): I82.402 - Acute embolism and thrombosis of unspecified deep veins of left lower extremity Condition: Stable Record reviewed to determine appropriate education?: Yes Instructions: ED DVT Follow-Up: Fannie Brennan PA-C [Primary Care Provider] - Jessica Dorado MD [Provider Admit Priv/Credential] - Prescriptions: Apixaban [Eliquis] 5 mg PO BID 20 Days #40 tablet Comments: I have not heard back from the oncology office. We will start with one of the more common blood thinners for this, with Eliquis 5 mg twice daily. I wrote a prescription for 3 weeks worth which would be time to be in touch with your oncologist and primary care and have a follow up visit. Regular activity is okay. Continue your other usual medications. Add Tylenol extra if needed for pains. Discharge Date/Time: 06/10/21 16:17
--- NOTE | 2021-06-10 15:25 | Ultrasound Report ---
PROCEDURE: Duplex Ext Veins Left INDICATIONS: LLE swelling, pain TECHNIQUE: Real-time imaging, as well as color and pulse Doppler interrogation, were performed of the lower extr emity deep veins from the inguinal ligament to the popliteal fossa. COMPARISON: Same day CT chest. CT abdomen and pelvis 05/17/2021. FINDINGS: There is extensive left lower extremity DVT. Thrombus extends from the CFV into the calf veins. The t hrombus appears occlusive. There is also thrombus in the left profunda vein. IMPRESSION: Extensive left lower extremity DVT. Results were conveyed to Dr. Herrera by the oncology transplant network manager at 1500 hours. Reviewed by: Anson Tee MD on 06/10/2021 3:24 PM PST Approved by: Anson Tee MD on 06/10/2021 3:24 PM [facility] Station ID: [id number]
[2021-06-10] MEDS ORDERED: oxyCODONE 5 MG TABLET PO STA (15:31)
[2021-06-10] MEDS ORDERED: APIXABAN 5 MG TABLET PO STA (15:53)
[2021-06-10 16:18] VITALS: BP 105/99
== END 2021-06-10 16:17 | disposition home or self-care (01) ==
LOC: ED 13:12
DX: I82.402 Acute embolism and thrombosis of unspecified deep veins of left lower extremity (principal); Z87.891 Personal history of nicotine dependence
CPT/HCPCS: 93971; 99284; A9270

== ENCOUNTER 2021-06-21 08:39 | Outpatient (CLI) | payer MEDICARE | END 2021-06-21 08:40 | disposition EMS.NT | LOC: EMS 08:39 | DX: R53.1 Weakness (principal); G89.3 Neoplasm related pain (acute) (chronic); C25.9 Malignant neoplasm of pancreas, unspecified; C78.00 Secondary malignant neoplasm of unspecified lung ==

== ENCOUNTER 2021-06-21 10:29 | Inpatient (IN) | payer MEDICARE ==
[2021-06-21] MEDS ORDERED: PIPERACILLIN/TAZOBACTAM 3.375 GM in SODIUM CHLORIDE 0.9% MINIBAG 100 ML IV STA (11:08)
[2021-06-21] MEDS ORDERED: SODIUM CHLORIDE 0.9% IV STA (11:08)
--- NOTE | 2021-06-21 11:13 | ED Physician Documentation ---
History of Present Illness - Stated complaint Stated Complaint: WEAKNESS,LOW BACK PX - Chief complaint Chief Complaint: Abd Pain - History obtained from History obtained from: Patient - History of Present Illness Timing: How many weeks ago (6) - Additonal information Additional information: 70-year-old male with a 6 weeks of symptoms of weakness nausea abdominal pain weight loss foul-smelling urine yellow eyes has been diagnosed with pancreatic cancer he had a biopsy done and he is preparing to get palliative chemotherapy started. He was at [facility] today to get this palliative chemotherapy started and they noted him to be extremely weak and too frail to undergo treatment. They have sent him to the emergency department for evaluation. The patient f eels that he is significantly dehydrated. He has very dry lips and dry skin. He does indicate that the DVT that he had in his left leg seems to be much improved. He has had discussion with oncology about palliative treatment and he has family coming to visit in the next 2 weeks. He is not fully committed to palliative chemotherapy at this point. Review of Systems Constitutional: denies: Fever Eyes: denies: Decreased vision Ears: denies: Ear pain Nose: denies: Rhinorrhea / runny nose, Congestion Throat: denies: Sore throat Cardiac: denies: Chest pain / pressure, Palpitations Respiratory: denies: Dyspnea, Cough GI: reports: Abdominal Pain, Nausea, Vomiting : denies: Dysuria, Frequency Skin: denies: Rash Musculoskeletal: reports: Back pain. denies: Neck pain, Extremity pain Neurologic: reports: Generalized weakness. denies: Focal weakness, Numbness, Difficulty speaking PD PAST MEDICAL HISTORY - Past Medical History Cardiovascular: None Respiratory: None Endocrine/Autoimmune: None GI: Other : None HEENT: None Psych: Depression, Anxiety Musculoskeletal: None Derm: Other - Past Surgical History General: Other Derm: Skin cancer surgery - Present Medications Home Medications: Ambulatory Orders Medication Instructions Recorded Confirmed LORazepam [Ativan] 0.5 - 1 mg PO Q6H PRN #14 tablet 05/17/21 06/21/21 buPROPion [Wellbutrin Sr] 200 mg PO DAILY 05/19/21 06/21/21 Ondansetron Odt [Zofran] 4 mg TL Q6H PRN #30 tablet 05/27/21 06/21/21 Melatonin/Pyridoxine [Melatonin 5 1 each PO DAILY PM 06/07/21 06/21/21 mg Tablet] Apixaban [Eliquis] 5 mg PO BID 20 Days #40 tablet 06/10/21 06/21/21 Lipase/Protease/Amylase [Creon Dr 1 each PO UD 30 Days #90 cap 06/21/21 06/21/21 24,000 Unit Capsule] oxyCODONE [Roxicodone] 5 - 10 mg PO Q4HR PRN 06/21/21 06/21/21 - Allergies Allergies/Adverse Reactions: Allergies Allergy/AdvReac Type Severity Reaction Status Date / Time codeine Allergy Rash Verified 06/21/21 10:41 - Social History Does the pt smoke?: No Smoking Status: Former smoker PD ED PE NORMAL - General General: Alert and oriented X 3, No acute distress, Well developed/nourished, O ther (frail appearing 70 y/o male with parched lips yellow eyes and a soft voice. ) - HEENT HEENT: Atraumatic, PERRL, EOMI, Other (scleral icterus is present. ) - Neck Neck: Supple, no meningeal sign, No bony TTP - Cardiac Cardiac: No murmur, Other (tachy ) - Respiratory Respiratory: No respiratory distress, Clear bilaterally - Abdomen Abdomen: Normal bowel sounds, Soft, Non distended, No organomegaly, Other (mild general tenderness without garding. 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, No motor deficit, No sensory deficit, Normal speech Eye Opening: Spontaneous Motor: Obeys Commands Verbal: Oriented GCS Score: 15 - Psych Psych: Normal mood, Normal affect Results - Vitals Vitals: Vital Signs - 24 hr 06/21/21 06/21/21 06/21/21 10:37 11:00 12:17 Temperature 35.5 C L 36.1 C L Heart Rate 107 H 103 H 86 Respiratory 18 16 18 Rate Blood Pressure 113/59 L 123/74 106/47 L O2 Saturation 95 96 95 06/21/21 06/21/21 06/21/21 12:30 13:20 13:52 Temperature 35.7 C L 35.8 C L Heart Rate 82 88 86 Respiratory 14 16 14 Rate Blood Pressure 108/48 L 108/51 L 112/68 O2 Saturation 95 95 96 06/21/21 14:59 Temperature 35.6 C L Heart Rate 82 Respiratory 18 Rate Blood Pressure 110/69 O2 Saturation 96 Oxygen O2 Source Room air - Labs Labs: Laboratory Tests 06/21/21 06/21/21 06/21/21 10:55 10:55 10:55 WBC 37.4 H* RBC 4.18 L Hgb 11.2 L Hct 36.0 L MCV 86.1 MCH 26.8 L MCHC 31.1 L RDW 25.2 H Plt Count 229 MPV 10.3 Neut # (Auto) Not Reportable Lymph # (Auto) Not Reportable [place] # (Auto) Not Reportable Eos # (Auto) Not Reportable Baso # (Auto) Not Reportable Absolute Nucleated RBC Not Reportable Total Counted 100 Band Neuts % (Manual) 15 H Abnorm Lymph % (Manual) 0 Metamyelocytes % 2 H Nucleated RBC % Not Reportable Neutrophils # (Manual) 31.0 H Lymphocytes # (Manual) 2.2 Monocytes # (Manual) 1.9 H Eosinophils # (Manual) 1.1 H Basophils # (Manual) 0.4 H Differential Comment MANUAL DIFFERENTIAL Manual Slide Review Indicated WBC Morphology NORMAL APPEARANCE Platelet Estimate NORMAL (130-450,000) Platelet Morphology NORMAL APPEARANCE RBC Morph Micro Appear 1+ HYPOCHROMASIA Sodium 132 L Potassium 5.0 Chloride 94 L Carbon Dioxide 22 Anion Gap 16.0 H BUN 27 H Creatinine 1.1 Estimated GFR (MDRD) 66 L Glucose 122 H Lactic Acid 3.3 H* Calcium 8.3 L Total Bilirubin 7.4 H AST 92 H ALT 63 H Alkaline Phosphatase 768 H Total Protein 7.1 Albumin 2.1 L Globulin 5.0 H Albumin/Globulin Ratio 0.4 L Urine Color Urine Clarity Urine pH Ur Specific [place] Urine Protein Urine Glucose (UA) Urine Ketones Urine Occult Blood Urine Nitrite Urine Bilirubin Urine Urobilinogen Ur Leukocyte Esterase Urine RBC Urine WBC Ur Squamous Epith Cells Urine Bacteria Urine Casts Urine Mucus Urine Culture Comments 06/21/21 11:39 WBC RBC Hgb Hct MCV MCH MCHC RDW Plt Count MPV Neut # (Auto) Lymph # (Auto) [place] # (Auto) Eos # (Auto) Baso # (Auto) Absolute Nucleated RBC Total Counted Band Neuts % (Manual) Abnorm Lymph % (Manual) Metamyelocytes % Nucleated RBC % Neutrophils # (Manual) Lymphocytes # (Manual) Monocytes # (Manual) Eosinophils # (Manual) Basophils # (Manual) Differential Comment Manual Slide Review WBC Morphology Platelet Estimate Platelet Morphology RBC Morph Micro Appear Sodium Potassium Chloride Carbon Dioxide Anion Gap BUN Creatinine Estimated GFR (MDRD) Glucose Lactic Acid Calcium Total Bilirubin AST ALT Alkaline Phosphatase Total Protein Albumin Globulin Albumin/Globulin Ratio Urine Color YELLOW Urine Clarity SL. CLOUDY Urine pH 5.5 Ur Specific [place] >=1.030 H Urine Protein 100 H Urine Glucose (UA) NEGATIVE Urine Ketones 15 H Urine Occult Blood NEGATIVE Urine Nitrite POSITIVE H Urine Bilirubin LARGE H Urine Urobilinogen >=8.0 H Ur Leukocyte Esterase NEGATIVE Urine RBC None Seen Urine WBC 0-3 Ur Squamous Epith Cells RARE Squamous Urine Bacteria Few Urine Casts 6-10 Course Granular Urine Mucus Moderate Strands Urine Culture Comments INDICATED Procedures - IVC sono (time) 1110 Bedside IVC sono: IVC measures (cm) (0.71), Dehydration (est 2- 3 liter deficit) PD MEDICAL DECISION MAKING - ED course Complexity details: reviewed old records, reviewed results, re-evaluated patient, considered differential, d/w patient ED course: 70-year-old male with recently diagnosed pancreatic cancer has presented to the [facility] clinic to have his first course of palliative chemotherapy and was deemed too frail for treatment. Today in the emergency department he is found to be significantly dehydrated on interrogation of the inferior vena cava and normal saline is begun. He flags for sepsis based on his vital signs and a septic work-up is begun. IV fluid is administered as well as cefepime. At the onset I suspect the patients symptoms are mostly related to the degree of dehydration. I was not able to elicit a history of specific change that indicates a specific infection other than the abdominal pain. There is no peritonitis with the pain and I suspect this is the same pain the patient has had and not an intra ab dominal infection. Patient much improved after 1 liter in. An ultrasound of the right upper quadrant is performed to determine the extent of obstruction and on this study the common duct does not appear dilated. There is dilation of intrahepatic bile ducts surrounding the numerous and large hepatic mets. The case does not appear to be amenable to stenting at this time. The patient is admitted to the hospital for work up and treatment of SIRS. A potential source for sepsis is ascending cholangitis. Dr. Manriquez is consulted in the case and will care for the patient in the hospital . Departure - Departure Disposition: 66 [facility] DC/Xfer Clinical Impression: Pancreatic cancer metastasized to liver, Dehydration, SIRS (systemic inflammatory response syndrome)
[2021-06-21 11:19] LABS: BASOPHILS % (AUTO) 0.6 %; EOSINOPHILS % (AUTO) 6.1 %; HGB - HEMOGLOBIN 11.2 g/dL (14.0-18.0); LYMPHOCYTES % (AUTO) 5.1 %; MEAN CORPUSCULAR HEMOGLOBIN 26.8 pg (27.0-31.0); MEAN CORPUSCULAR HGB CONC 31.1 g/dL (32.0-36.0); MEAN CORPUSCULAR VOLUME 86.1 fL (80.0-94.0); MEAN PLATELET VOLUME 10.3 fL (7.4-11.4); MONOCYTES % (AUTO) 7.2 %; NEUTROPHILS % (AUTO) 76.9 %; PLT - PLATELET COUNT 229 10^3/uL (130-450); RED BLOOD COUNT 4.18 10^6/uL (4.70-6.10); RED CELL DISTRIBUTION WIDTH 25.2 % (12.0-15.0)
[2021-06-21 11:23] LABS: SLIDE REVIEW? Indicated; WHITE BLOOD COUNT 37.4 x10^3/uL (4.8-10.8)
[2021-06-21 11:24] LABS: ABNORMAL LYMPHS % (MANUAL) 0 %
[2021-06-21 11:27] LABS: ALBUMIN 2.1 g/dL (3.2-5.5); ALBUMIN/GLOBULIN RATIO 0.4 (1.0-2.2); BILIRUBIN,TOTAL 7.4 mg/dL (0.2-1.0); CALCIUM 8.3 mg/dL (8.5-10.3); CREATININE 1.1 mg/dL (0.6-1.2); TOTAL PROTEIN 7.1 g/dL (6.7-8.2)
[2021-06-21 11:36] LABS: LACTIC ACID, VENOUS 3.3 mmol/L (0.5-2.2)
[2021-06-21 11:51] LABS: GLUCOSE, URINE (UA) NEGATIVE (NEGATIVE); KETONES,URINE (UA) 15 mg/dL (NEGATIVE); LEUKOCYTE ESTERASE, URINE NEGATIVE (NEGATIVE); NITRITE,URINE POSITIVE (NEGATIVE); OCCULT BLOOD,URINE NEGATIVE (NEGATIVE); PH,URINE 5.5 PH (5.0-7.5); PROTEIN,URINE 100 mg/dL (NEGATIVE); UROBILINOGEN,URINE >=8.0 E.U./dL (NORMAL)
[2021-06-21 11:58] LABS: BILIRUBIN,URINE LARGE (NEGATIVE); CLARITY,URINE SL. CLOUDY (CLEAR); ICTOTEST,URINE POSITIVE
[2021-06-21 12:09] LABS: BAND NEUTROPHILS % (MANUAL) 15 %; BASOPHILS # (MANUAL) 0.4 10^3/uL (0-0.1); BASOPHILS % (MANUAL) 1 %; EOSINOPHILS # (MANUAL) 1.1 10^3/uL (0-0.7); LYMPHOCYTES # (MANUAL) 2.2 10^3/uL (1.5-3.5); LYMPHOCYTES % (MANUAL) 6 %; METAMYELOCYTES % (MANUAL) 2 %; MONOCYTES # (MANUAL) 1.9 10^3/uL (0.0-1.0)
[2021-06-21 12:13] LABS: DIFFERENTIAL COMMENT MANUAL DIFFERENTIAL; PLATELET ESTIMATE, MANUAL NORMAL (130-450,000) (NORMAL); PLATELET MORPHOLOGY NORMAL APPEARANCE (NORMAL); WBC MORPHOLOGY (MULTIPLE) NORMAL APPEARANCE (NORMAL)
[2021-06-21 12:21] LABS: BACTERIA,URINE Few /HPF (None Seen); MUCUS,URINE Moderate Strands; RBC,URINE None Seen /HPF (0-5); SQUAMOUS EPITHELIAL CELL,UR RARE Squamous (<= Few); WBC,URINE 0-3 /HPF (0-3)
--- NOTE | 2021-06-21 12:44 | XRAY Report ---
PROCEDURE: Chest 1 View X-Ray INDICATIONS: chest pain TECHNIQUE: One view of the chest was acquired. COMPARISON: CTA chest 06/10/2021 FINDINGS: Surgical changes and devices: None. Lungs and pleura: No pleural effusions or pneumothorax. Lungs are clear of acute opacities. Nodular opacity in the left perihilar midlung corresponds to metastatic lesion identified by prior CT scan i s not significantly changed in size or contour. Mediastinum: Mediastinal contours appear normal. Heart size is normal. Bones and chest wall: No suspicious bony lesions. Overlying soft tissues appear unremarkable. IMPRESSION: No acute cardiopulmonary disease process. Reviewed by: Clarissa Singh MD, PhD on 06/21/2021 11:42 AM [facility] Approved by: Clarissa Singh MD, PhD on 06/21/2021 11:42 AM [facility] Station ID: [id number]
[2021-06-21] MEDS ORDERED: ONDANSETRON 4 MG/2 ML VIAL IVP STA (15:21)
[2021-06-21 15:31] LABS: B. PARAPERTUSSIS- RESP PCR PAN NOT DETECTED; B. PERTUSSIS- RESP PCR PANEL NOT DETECTED; C. PNEUMONIAE- RESP PCR PANEL NOT DETECTED; CORONAVIRUS 229E-RESP PCR NOT DETECTED; CORONAVIRUS HKU1-RESP PCR NOT DETECTED; CORONAVIRUS NL63-RESP PCR NOT DETECTED; CORONAVIRUS OC43-RESP PCR NOT DETECTED; HUMAN METAPNEUMOVIRUS NOT DETECTED; INFLUENZA A- RESP PCR PANEL NOT DETECTED; INFLUENZA B - RESP PCR PANEL NOT DETECTED; M. PNEUMONIAE- RESP PCR PANEL NOT DETECTED; PARAINFLUENZA VIRUS 1 NOT DETECTED; PARAINFLUENZA VIRUS 2 NOT DETECTED; PARAINFLUENZA VIRUS 3 NOT DETECTED; PARAINFLUENZA VIRUS 4 NOT DETECTED; RHINOVIRUS/ENTEROVIRUS NOT DETECTED; RSV- RESP PCR PANEL NOT DETECTED; SARS-CoV-2 -RESP PCR PANEL NOT DETECTED
[2021-06-21 15:54] LABS: LACTIC ACID, VENOUS 2.3 mmol/L (0.5-2.2)
--- NOTE | 2021-06-21 16:10 | Ultrasound Report ---
PROCEDURE: Abdomen Limited INDICATIONS: elevated bili. ? obstruction, known pancreatic CA TECHNIQUE: Real-time focused scanning was performed of the abdomen, with image documentation. COMPARISON: Abdomen and pelvis CT 05/17/2021 FINDINGS: These images demonstrate numerous hepatic masses consistent with metastatic disease, as seen on the p rior study. Enlarged pancreatic head consistent with pancreatic adenocarcinoma, also seen on the prio r study. There is no dilatation of the intrahepatic or extrahepatic biliary ducts to suggest biliary tract obs truction. The common duct measures 4 mm in diameter at the lolis hepatis. The gallbladder appears normally distended with no wall thickening or pericholecystic fluid. No shado wing gallstone or sludge demonstrated. Right kidney unremarkable. IMPRESSION: Pancreatic head mass with numerous hepatic metastases. No biliary ductal dilatation to suggest biliary tract obstruction. Reviewed by: Richard Montgomery MD on 06/21/2021 4:09 PM PST Approved by: Richard Montgomery MD on 06/21/2021 4:09 PM PST Station ID: [id number]
[2021-06-21] MEDS ORDERED: ONDANSETRON ODT 4 MG TABLET TL PRN (16:16)
[2021-06-21] MEDS ORDERED: oxyCODONE 5 MG TABLET PO PRN (16:16)
--- NOTE | 2021-06-21 16:21 | HISTORY & PHYSICAL EXAMINATION ---
Chief Complaint - Chief Complaint Chief Complaint: Weakness History of Present Illness - Admitted From Admitted From:: Home - History Obtained From Records Reviewed: Yes History obtained from: Patient, ER Physician, EMR - History of Present Illness HPI Comment/Other: This is a 70-year-old male with a past medical history significant for metastatic pancreatic cancer who presents today from [place] [facility] due to weakness. He went to the [facility] today to get a port in anticipation of starting chemotherapy. They noted he was quite lethargic and weak and sent him to the emergency department for evaluation. The patient states he has felt weak for months but has progressed over the past few weeks since his diagnosis of the pancreatic cancer. He has encouraged himself to try and eat as much as possible but has had limited p.o. intake due to nausea. He does have diffuse abdominal pain but states it is relatively controlled at this time. No chest pain or dyspnea. He normally ambulates on his own but has just gotten weaker and more sedentary. He is hoping to undergo palliative chemotherapy in hopes of prolonging his life enough to see his family in a couple of weeks. He reports dysuria but states that has been present for months. He has no cough or chills or fever. He has been taking Eliquis which was prescribed for a left lower extremity DVT. He feels like his left leg edema is improving. In the emergency department, he was noted of a white count of 37,000 with bands present. His lactate was elevated at 3.3. He was given broad-spectrum antibiotics and chest x-ray was obtained which showed no acute normalities. Right upper quadrant ultrasound was obtained which showed no evidence of biliary obstruction. Given the above findings, medicine was consulted for admission. I did discuss goals of care with the patient and he would like to be DNR. History - Past Medical History Cardiovascular: reports: None Respiratory: reports: None Neuro: reports: None Endocrine/Autoimmune: reports: None GI: reports: Other (Metastatic pancreatic cancer.) : reports: None HEENT: reports: None Psych: reports: Depression, Anxiety Musculoskeletal: reports: None MRSA Hx?: No - Past Surgical History General: reports: Other (Bilateral inguinal hernia repair.) Derm: reports: Skin cancer surgery - Family & Social History Family History: Mother: , Father: Family History Comment/Other: He reports mother had a history of cervical cancer otherwise both of his parents were healthy. Living arrangement: At home Living Situation: With spouse/s.o. Social History Notes: He lives at home with his significant other. He smoked on and off for 30 years but quit about 8 years ago. Meds/Allgy - Home Medications Home Medications: Ambulatory Orders Medication Instructions Recorded Confirmed LORazepam [Ativan] 0.5 - 1 mg PO Q6H PRN #14 tablet 05/17/21 06/21/21 buPROPion [Wellbutrin Sr] 200 mg PO DAILY 05/19/21 06/21/21 Ondansetron Odt [Zofran] 4 mg TL Q6H PRN #30 tablet 05/27/21 06/21/21 Melatonin/Pyridoxine [Melatonin 5 1 each PO DAILY PM 06/07/21 06/21/21 mg Tablet] Apixaban [Eliquis] 5 mg PO BID 20 Days #40 tablet 06/10/21 06/21/21 Lipase/Protease/Amylase [Creon Dr 1 each PO UD 30 Days #90 cap 06/21/21 06/21/21 24,000 Unit Capsule] oxyCODONE [Roxicodone] 5 - 10 mg PO Q4HR PRN 06/21/21 06/21/21 - Allergies Allergies/Adverse Reactions: Allergies Allergy/AdvReac Type Severity Reaction Status Date / Time codeine Allergy Rash Verified 06/21/21 10:41 Review of Systems - Constitutional Constitutional: reports: Fatigue, Weakness, Poor appetite, Weight loss. denies: Fever, Chills - Ears, Nose & Throat Ears, Nose & Throat: denies: Nasal discharge - Cardiovascular Cariovascular: denies: Chest pain, Exertional dyspnea, Decr. exercise tolerance - Respiratory Respiratory: denies: Cough, SOB at rest, SOB with exertion - Gastrointestinal Gastrointestinal: reports: Abdominal pain, Constipation, Nausea. denies: Diarrhea, Change in bowel habits, Vomiting - Genitourinary Genitourinary: reports: Dysuria. denies: Urgency, Hematuria - Musculoskeletal Musculoskeletal: denies: Muscle pain, Back pain - Integumentary Integumentary: denies: Rash - Neurological Neurological: reports: General weakness. denies: Focal weakness - All Other Systems All Other Systems: reports: Reviewed and negative Prior Level of Functionality: He was independent with his ADLs. Exam - Vital Signs Reviewed Vital Signs: Yes Vital Signs: Vital Signs x48h Temp Pulse Resp BP Pulse Ox 06/21/21 16:12 35.8 C L 91 14 110/90 H 94 06/21/21 15:30 92 18 125/59 L 93 06/21/21 14:59 35.6 C L 82 18 110/69 96 06/21/21 13:52 35.8 C L 86 14 112/68 96 06/21/21 13:20 88 16 108/51 L 95 06/21/21 12:30 35.7 C L 82 14 108/48 L 95 06/21/21 12:17 86 18 106/47 L 95 06/21/21 11:00 36.1 C L 103 H 16 123/74 96 06/21/21 10:37 35.5 C L 107 H 18 113/59 L 95 - Physical Exam General Appearance: positive: Mild distress, Lethargic Eyes Bilateral: negative: Conjunctivae nml, No scleral icterus ENT: positive: ENT inspection nml Neck: positive: Nml inspection Respiratory: positive: No respiratory distress. negative: Wheezes, Rales Cardiovascular: positive: Regular rate & rhythm. negative: Tachycardia Abdomen: positive: Nml bowel sounds, Tenderness (Diffuse tenderness.). negative: Non-tender, Guarding, Rebound Skin: positive: Warm, Dry, Other (Jaundiced.) Extremities: positive: Pedal edema (+2 edema in left lower extremity.) Neurologic/Psychiatric: positive: Motor nml. negative: Disoriented to person, Disoriented to place Conclusion/Plan - Problem List (1) Sepsis Conclusion/Plan: The concern is for sepsis given leukocytosis with bands, elevated lactic acid and is overall weakness. There is no obvious source at this time. Urinalysis not suggest infection and imaging did not reveal any biliary obstruction suggest cholangitis. X-ray is also unremarkable. We will keep him on empiric antibiotics with vancomycin, Cefepime, Flagyl IV. Trend his lactic. Follow-up cultures. (2) Pancreatic cancer metastasized to liver Conclusion/Plan: He unfortunately has metastatic pancreatic cancer to liver and to the lungs. His LFTs are elevated due to metastasis and imaging did not reveal any evidence of biliary obstruction. Plan was for palliative chemotherapy but I am not sure he is a good candidate for this as he is quite deconditioned. I have asked Coby Dacosta of palliative care to see him tomorrow and I did discuss with the patient regarding goals of care. He is agreeable to being a DNR and will consider comfort measures if he does not improve but his ultimate goal is to see his family in a couple of weeks. I am hopeful that if he does have an infection that we can treat this and improve his quality life over next few weeks but I am concerned that he is just going to decline further. (3) DVT (deep venous thrombosis) Conclusion/Plan: He is on Eliquis for left lower Maxwell DVT which was diagnosed earlier this month. We will continue Eliquis. Qualifiers: DVT location: lower extremity Affected thrombotic vein of extremity: unspecified vein of extremity Chronicity: acute Laterality: left Qualified Code(s): I82.402 - Acute embolism and thrombosis of unspecified deep veins of left lower extremity - Lab Results Lab results reviewed: Yes Jordy Bones: 06/21/21 10:55 06/21/21 10:55 - Diagnostic Imaging Results Diagnostic Imaging Results: positive: Final report reviewed Core Measures - Anticipated LOS I expect patient to be DC'd or transferred within 96 hours.: Yes - Issues Hospital Issues and Management Plan: 70-year-old male with known metastatic pancreatic cancer presented to weakness and concerns for sepsis. He will be on empiric IV antibiotics until we have fo llow-up cultures. - DVT/VTE - Prophylaxis VTE/DVT Device ordered at admit?: No VTE/DVT Prophylaxis med ordered at admit?: Yes
--- NOTE | 2021-06-21 17:10 | PHARMACY PROGRESS NOTE ---
- Best Possible Medication History Admit Date and Time: 06/21/21 1616 Processed by: Nursing Medication History completed: Yes Patient Interview: Completed As the person ultimately responsible for medication therapy, providers are able to order a medication from an existing home medication list in [facility] via the "Reconcile Routine" prior to Confirmation of that medication by student support counselor. Such practice is discouraged except when the physician, in their clinical judg ment, deems that a medical need exists for a medication without regard to previous use.
[2021-06-21] MEDS: SODIUM CHLORIDE FLUSH 0.9% 10 ML SYRINGE IVP SCH (17:16)
[2021-06-21] MEDS ORDERED: VANCOMYCIN INJ 1 GM, VANCOMYCIN INJ 500 MG in SODIUM CHLORIDE 0.9% 500 ML IV SCH (17:30)
[2021-06-21] MEDS: CEFEPIME 2 GM in SODIUM CHLORIDE 0.9% MINIBAG 100 ML IV SCH (19:34)
[2021-06-21] MEDS: SODIUM CHLORIDE FLUSH 0.9% 10 ML SYRINGE IVP PRN ×2 (19:34→21:43)
[2021-06-21] MEDS: LACTATED RINGERS 1,000 ML IV SCH (20:06)
[2021-06-21] MEDS: ONDANSETRON 4 MG/2 ML VIAL IVP PRN (21:43)
[2021-06-21] MEDS: APIXABAN 5 MG TABLET PO SCH (21:43)
[2021-06-21] MEDS: metroNIDAZOLE 500 MG/100 ML 500 MG/100 ML BAG IV SCH (21:44)
[2021-06-22] MEDS: SODIUM CHLORIDE FLUSH 0.9% 10 ML SYRINGE IVP SCH ×3 (01:38→17:02)
[2021-06-22] MEDS: oxyCODONE 5 MG TABLET PO PRN ×2 (01:38→15:00)
[2021-06-22] MEDS: LACTATED RINGERS 1,000 ML IV SCH (03:04)
[2021-06-22] MEDS: CEFEPIME 2 GM in SODIUM CHLORIDE 0.9% MINIBAG 100 ML IV SCH ×3 (03:27→20:03)
[2021-06-22] MEDS: VANCOMYCIN INJ 1 GM in SODIUM CHLORIDE 0.9% 250 ML IV SCH ×2 (04:59→17:02)
[2021-06-22] MEDS: metroNIDAZOLE 500 MG/100 ML 500 MG/100 ML BAG IV SCH ×3 (07:05→21:50)
--- NOTE | 2021-06-22 07:29 | PROVIDER PROGRESS NOTE ---
Subjective - Prog Note Date Prog Note Date: 06/22/21 - Subjective Subjective: He feels a little better compared to yesterday. His pain is still about a 4 out of 10. He met with cardiology of palliative care this morning and he is agreeable to going on hospice. Current Medications - Current Medications Current Medications: Active Medications Acetaminophen (Acetaminophen 325 Mg Tablet) 650 mg PO Q4HR PRN PRN Reason: Pain 1 to 4 Last Admin: 06/22/21 08:09 Dose: 650 mg Apixaban (Apixaban 5 Mg Tablet) 5 mg PO BID [facility] Last Admin: 06/22/21 08:09 Dose: 5 mg Bupropion HCl (Bupropion Sr 100 Mg Tablet) 200 mg PO DAILY [facility] Last Admin: 06/22/21 08:09 Dose: 200 mg Cefepime HCl 2 gm/ Sodium (Chloride) 100 mls @ 200 mls/hr IV Q8H [facility] Last Infusion: 06/22/21 11:27 Dose: Infused Metronidazole (Flagyl 500 Mg/100 Ml) 500 mg in 100 mls @ 100 mls/hr IV TID [facility] Last Admin: 06/22/21 13:18 Dose: 100 mls/hr Vancomycin HCl 1 gm/ Sodium (Chloride) 250 mls @ 167 mls/hr IV Q12H [facility] Last Infusion: 06/22/21 06:29 Dose: Infused Morphine Sulfate (Morphine 2 Mg/Ml Carpuject) 2 mg IVP Q2HR PRN PRN Reason: Pain 8 to 10 Ondansetron HCl (Ondansetron 4 Mg/2 Ml Vial) 4 mg IVP Q6HR PRN PRN Reason: Nausea / Vomiting Last Admin: 06/21/21 21:43 Dose: 4 mg Ondansetron HCl (Ondansetron Odt 4 Mg Tablet) 4 mg TL Q6HR PRN PRN Reason: Nausea / Vomiting Oxycodone HCl (Oxycodone 5 Mg Tablet) 5 mg PO Q4HR PRN PRN Reason: Pain 5 to 7 Last Admin: 06/22/21 01:38 Dose: 5 mg Polyethylene Glycol (Polyethylene Glycol 3350 17 Gm Packet) 17 gm PO DAILY [facility] Last Admin: 06/22/21 11:42 Dose: 17 gm Sodium Chloride (Sodium Chloride Flush 0.9% 10 Ml Syringe) 10 ml IVP PRN PRN PRN Reason: NEEDED PER PROVIDER ORDERS Last Admin: 06/21/21 21:43 Dose: 10 ml Sodium Chloride (Sodium Chloride Flush 0.9% 10 Ml Syringe) 10 ml IVP 0100,0900,1700 [facility] Last Admin: 06/22/21 03:28 Dose: 10 ml buPROPion [Wellbutrin Sr] 200 mg PO DAILY 05/19/21 Melatonin/Pyridoxine [Melatonin 5 mg Tablet] 1 each PO DAILY PM 06/07/21 oxyCODONE [Roxicodone] 5 - 10 mg PO Q4HR PRN 06/21/21 Objective - Vital Signs/Intake & Output Reviewed Vital Signs: Yes Vital Signs: Vital Signs x48h Temp Pulse Resp BP Pulse Ox 06/22/21 03:56 36.5 C 84 18 102/62 94 06/22/21 00:00 36.4 C L 83 16 110/55 L 95 Intake & Output: Intake & Output 06/19/21 06/20/21 06/21/21 06/22/21 23:59 23:59 23:59 23:59 Intake Total 3763.63 1050 Output Total 325 400 Balance 3438.63 650 - Objective General Appearance: positive: Mild distress, Lethargic Eyes Bilateral: negative: No scleral icterus ENT: positive: ENT inspection nml Neck: positive: Nml inspection Respiratory: positive: No respiratory distress. negative: Wheezes, Rales Cardiovascular: positive: Regular rate & rhythm. negative: Tachycardia Abdomen: positive: Tenderness (Right upper quadrant). negative: Guarding, Rebound Skin: positive: Warm, Dry, Other (Jaundiced.) Extremities: positive: Pedal edema (+1 to +2 edema in left lower extremity.) Neurologic/Psychiatric: negative: Disoriented to person, Disoriented to place - Lab Results Fish Bones: 06/22/21 09:48 06/22/21 09:48 Other Labs: Lab Results x24hrs 06/21/21 06/21/21 06/21/21 Range/Units 18: 15:38 13:50 WBC (4.8-10.8) x10^3/uL RBC (4.70-6.10) 10^6/uL Hgb (14.0-18.0) g/dL Hct (42.0-52.0) % MCV (80.0-94.0) fL MCH (27.0-31.0) pg MCHC (32.0-36.0) g/dL RDW (12.0-15.0) % Plt Count (130-450) 10^3/uL MPV (7.4-11.4) fL Neut # (Auto) Lymph # (Auto) Cole # (Auto) Eos # (Auto) Baso # (Auto) Absolute Nucleated RBC Total Counted Band Neuts % (Manual) (0 - 10) % Abnorm Lymph % (Manual) % Metamyelocytes % ( - 0) % Nucleated RBC % Neutrophils # (Manual) (1.5-6.6) 10^3/uL Lymphocytes # (Manual) (1.5-3.5) 10^3/uL Monocytes # (Manual) (0.0-1.0) 10^3/uL Eosinophils # (Manual) (0-0.7) 10^3/uL Basophils # (Manual) (0-0.1) 10^3/uL Differential Comment Manual Slide Review WBC Morphology (NORMAL) Platelet Estimate (NORMAL) Platelet Morphology (NORMAL) RBC Morph Micro Appear (NORMAL) Sodium (135-145) mmol/L Potassium (3.5-5.0) mmol/L Chloride (101-111) mmol/L Carbon Dioxide (21-32) mmol/L Anion Gap (6-13) BUN (6-20) mg/dL Creatinine (0.6-1.2) mg/dL Estimated GFR (MDRD) (>89) Glucose (70-100) mg/dL Lactic Acid 1.9 2.3 H (0.5-2.2) mmol/L Calcium (8.5-10.3) mg/dL Total Bilirubin (0.2-1.0) mg/dL AST (10-42) IU/L ALT (10-60) IU/L Alkaline Phosphatase (42-121) IU/L Total Protein (6.7-8.2) g/dL Albumin (3.2-5.5) g/dL Globulin (2.1-4.2) g/dL Albumin/Globulin Ratio (1.0-2.2) Urine Color Urine Clarity (CLEAR) Urine pH (5.0-7.5) PH Ur Specific Hague (1.002-1.030) Urine Protein (NEGATIVE) mg/dL Urine Glucose (UA) (NEGATIVE) mg/dL Urine Ketones (NEGATIVE) mg/dL Urine Occult Blood (NEGATIVE) Urine Nitrite (NEGATIVE) Urine Bilirubin (NEGATIVE) Urine Urobilinogen (NORMAL) E.U./dL Ur Leukocyte Esterase (NEGATIVE) Urine RBC (0-5) /HPF Urine WBC (0-3) /HPF Ur Squamous Epith Cells (<= Few) Urine Bacteria (None Seen) /HPF Urine Casts /LPF Urine Mucus Urine Culture Comments Nasal Adenovirus (PCR) NOT DETECTED Nasal B. parapertussis DNA (PCR) NOT DETECTED Nasal Coronavir 229E PCR NOT DETECTED Nasal Coronavir HKU1 PCR NOT DETECTED Nasal Coronavir NL63 PCR NOT DETECTED Nasal Coronavir OC43 PCR NOT DETECTED Nasal Enterovir/Rhinovir PCR NOT DETECTED Nasal Influenza B PCR NOT DETECTED Nasal Influenza A PCR NOT DETECTED Nasal Parainfluen 1 PCR NOT DETECTED Nasal Parainfluen 2 PCR NOT DETECTED Nasal Parainfluen 3 PCR NOT DETECTED Nasal Parainfluen 4 PCR NOT DETECTED Nasal RSV (PCR) NOT DETECTED Nasal B.pertussis DNA PCR NOT DETECTED Nasal C.pneumoniae (PCR) NOT DETECTED Darren Human Metapneumo PCR NOT DETECTED Nasal M.pneumoniae (PCR) NOT DETECTED Nasal SARS-CoV-2 (PCR) NOT DETECTED 06/21/21 06/21/21 06/21/21 Range/Units 11:39 10:55 10:55 WBC (4.8-10.8) x10^3/uL RBC (4.70-6.10) 10^6/uL Hgb (14.0-18.0) g/dL Hct (42.0-52.0) % MCV (80.0-94.0) fL MCH (27.0-31.0) pg MCHC (32.0-36.0) g/dL RDW (12.0-15.0) % Plt Count (130-450) 10^3/uL MPV (7.4-11.4) fL Neut # (Auto) Lymph # (Auto) Cole # (Auto) Eos # (Auto) Baso # (Auto) Absolute Nucleated RBC Total Counted Band Neuts % (Manual) (0 - 10) % Abnorm Lymph % (Manual) % Metamyelocytes % ( - 0) % Nucleated RBC % Neutrophils # (Manual) (1.5-6.6) 10^3/uL Lymphocytes # (Manual) (1.5-3.5) 10^3/uL Monocytes # (Manual) (0.0-1.0) 10^3/uL Eosinophils # (Manual) (0-0.7) 10^3/uL Basophils # (Manual) (0-0.1) 10^3/uL Differential Comment Manual Slide Review WBC Morphology (NORMAL) Platelet Estimate (NORMAL) Platelet Morphology (NORMAL) RBC Morph Micro Appear (NORMAL) Sodium 132 L (135-145) mmol/L Potassium 5.0 (3.5-5.0) mmol/L Chloride 94 L (101-111) mmol/L Carbon Dioxide 22 (21-32) mmol/L Anion Gap 16.0 H (6-13) BUN 27 H (6-20) mg/dL Creatinine 1.1 (0.6-1.2) mg/dL Estimated GFR (MDRD) 66 L (>89) Glucose 122 H (70-100) mg/dL Lactic Acid 3.3 H* (0.5-2.2) mmol/L Calcium 8.3 L (8.5-10.3) mg/dL Total Bilirubin 7.4 H (0.2-1.0) mg/dL AST 92 H (10-42) IU/L ALT 63 H (10-60) IU/L Alkaline Phosphatase 768 H (42-121) IU/L Total Protein 7.1 (6.7-8.2) g/dL Albumin 2.1 L (3.2-5.5) g/dL Globulin 5.0 H (2.1-4.2) g/dL Albumin/Globulin Ratio 0.4 L (1.0-2.2) Urine Color YELLOW Urine Clarity SL. CLOUDY (CLEAR) Urine pH 5.5 (5.0-7.5) PH Ur Specific [place] >=1.030 H (1.002-1.030) Urine Protein 100 H (NEGATIVE) mg/dL Urine Glucose (UA) NEGATIVE (NEGATIVE) mg/dL Urine Ketones 15 H (NEGATIVE) mg/dL Urine Occult Blood NEGATIVE (NEGATIVE) Urine Nitrite POSITIVE H (NEGATIVE) Urine Bilirubin LARGE H (NEGATIVE) Urine Urobilinogen >=8.0 H (NORMAL) E.U./dL Ur Leukocyte Esterase NEGATIVE (NEGATIVE) Urine RBC None Seen (0-5) /HPF Urine WBC 0-3 (0-3) /HPF Ur Squamous Epith Cells RARE Squamous (<= Few) Urine Bacteria Few (None Seen) /HPF Urine Casts 6-10 Course Granular /LPF Urine Mucus Moderate Strands Urine Culture Comments INDICATED Nasal Adenovirus (PCR) Nasal B. parapertussis DNA (PCR) Nasal Coronavir 229E PCR Nasal Coronavir HKU1 PCR Nasal Coronavir NL63 PCR Nasal Coronavir OC43 PCR Nasal Enterovir/Rhinovir PCR Nasal Influenza B PCR Nasal Influenza A PCR Nasal Parainfluen 1 PCR Nasal Parainfluen 2 PCR Nasal Parainfluen 3 PCR Nasal Parainfluen 4 PCR Nasal RSV (PCR) Nasal B.pertussis DNA PCR Nasal C.pneumoniae (PCR) Darren Human Metapneumo PCR Nasal M.pneumoniae (PCR) Nasal SARS-CoV-2 (PCR) 06/21/21 Range/Units 10:55 WBC 37.4 H* (4.8-10.8) x10^3/uL RBC 4.18 L (4.70-6.10) 10^6/uL Hgb 11.2 L (14.0-18.0) g/dL Hct 36.0 L (42.0-52.0) % MCV 86.1 (80.0-94.0) fL MCH 26.8 L (27.0-31.0) pg MCHC 31.1 L (32.0-36.0) g/dL RDW 25.2 H (12.0-15.0) % Plt Count 229 (130-450) 10^3/uL MPV 10.3 (7.4-11.4) fL Neut # (Auto) Not Reportable Lymph # (Auto) Not Reportable Cole # (Auto) Not Reportable Eos # (Auto) Not Reportable Baso # (Auto) Not Reportable Absolute Nucleated RBC Not Reportable Total Counted 100 Band Neuts % (Manual) 15 H (0 - 10) % Abnorm Lymph % (Manual) 0 % Metamyelocytes % 2 H ( - 0) % Nucleated RBC % Not Reportable Neutrophils # (Manual) 31.0 H (1.5-6.6) 10^3/uL Lymphocytes # (Manual) 2.2 (1.5-3.5) 10^3/uL Monocytes # (Manual) 1.9 H (0.0-1.0) 10^3/uL Eosinophils # (Manual) 1.1 H (0-0.7) 10^3/uL Basophils # (Manual) 0.4 H (0-0.1) 10^3/uL Differential Comment MANUAL DIFFERENTIAL Manual Slide Review Indicated WBC Morphology NORMAL APPEARANCE (NORMAL) Platelet Estimate NORMAL (130-450,000) (NORMAL) Platelet Morphology NORMAL APPEARANCE (NORMAL) RBC Morph Micro Appear 1+ HYPOCHROMASIA (NORMAL) Sodium (135-145) mmol/L Potassium (3.5-5.0) mmol/L Chloride (101-111) mmol/L Carbon Dioxide (21-32) mmol/L Anion Gap (6-13) BUN (6-20) mg/dL Creatinine (0.6-1.2) mg/dL Estimated GFR (MDRD) (>89) Glucose (70-100) mg/dL Lactic Acid (0.5-2.2) mmol/L Calcium (8.5-10.3) mg/dL Total Bilirubin (0.2-1.0) mg/dL AST (10-42) IU/L ALT (10-60) IU/L Alkaline Phosphatase (42-121) IU/L Total Protein (6.7-8.2) g/dL Albumin (3.2-5.5) g/dL Globulin (2.1-4.2) g/dL Albumin/Globulin Ratio (1.0-2.2) Urine Color Urine Clarity (CLEAR) Urine pH (5.0-7.5) PH Ur Specific [place] (1.002-1.030) Urine Protein (NEGATIVE) mg/dL Urine Glucose (UA) (NEGATIVE) mg/dL Urine Ketones (NEGATIVE) mg/dL Urine Occult Blood (NEGATIVE) Urine Nitrite (NEGATIVE) Urine Bilirubin (NEGATIVE) Urine Urobilinogen (NORMAL) E.U./dL Ur Leukocyte Esterase (NEGATIVE) Urine RBC (0-5) /HPF Urine WBC (0-3) /HPF Ur Squamous Epith Cells (<= Few) Urine Bacteria (None Seen) /HPF Urine Casts /LPF Urine Mucus Urine Culture Comments Nasal Adenovirus (PCR) Nasal B. parapertussis DNA (PCR) Nasal Coronavir 229E PCR Nasal Coronavir HKU1 PCR Nasal Coronavir NL63 PCR Nasal Coronavir OC43 PCR Nasal Enterovir/Rhinovir PCR Nasal Influenza B PCR Nasal Influenza A PCR Nasal Parainfluen 1 PCR Nasal Parainfluen 2 PCR Nasal Parainfluen 3 PCR Nasal Parainfluen 4 PCR Nasal RSV (PCR) Nasal B.pertussis DNA PCR Nasal C.pneumoniae (PCR) Darren Human Metapneumo PCR Nasal M.pneumoniae (PCR) Nasal SARS-CoV-2 (PCR) ABX Reporting Has patient been on IV antibiotics over the past 48 hours?: Yes Assessment/Plan - Problem List (1) Sepsis Impression: The concern is for sepsis given his elevated white count and lactic acid on admission. His lactic acid has resolved and his white count is slightly improved although still quite elevated with bands present. He has been afebrile without hypotension or tachycardia. There has been no evidence of infection to date. My concern is that this may just be SIRS due to his underlying cancer but we will keep him on antibiotics for the 24 hours until we have negative cultures for 48 hours. If there is no evidence of infection we will discontinue antibiotics. (2) Pancreatic cancer metastasized to liver Impression: He unfortunate is metastatic pancreatic cancer. His prognosis is quite poor and guarded. He did meet with palliative care today and he is agreeable to hospice on discharge. Once he is medically clear we will discharge him on hospice and they can likely admit him in 2 days. His family is arriving from the [facility] on Sunday. The plan at this time is to treat the underlying infection if present as he would like to survive long enough to see his family. Continue pain control with morphine and oxycodone as needed. (3) DVT (deep venous thrombosis) Impression: We will continue Eliquis. Qualifiers: DVT location: lower extremity Affected thrombotic vein of extremity: unspecified vein of extremity Chronicity: acute Laterality: left Qualified Code(s): I82.402 - Acute embolism and thrombosis of unspecified deep veins of left lower extremity (4) Severe protein-calorie malnutrition Impression: This is secondary to his pancreatic cancer. We will continue to encourage oral intake as tolerated.
[2021-06-22] MEDS: APIXABAN 5 MG TABLET PO SCH ×2 (08:09→20:05)
[2021-06-22] MEDS: buPROPion SR 100 MG TABLET PO SCH (08:09)
[2021-06-22] MEDS: ACETAMINOPHEN 325 MG TABLET PO PRN ×2 (08:09→20:05)
[2021-06-22 10:04] LABS: BASOPHILS % (AUTO) 0.4 %; EOSINOPHILS % (AUTO) 7.1 %; HCT - HEMATOCRIT 34.9 % (42.0-52.0); HGB - HEMOGLOBIN 10.9 g/dL (14.0-18.0); MEAN CORPUSCULAR HEMOGLOBIN 27.3 pg (27.0-31.0); MEAN CORPUSCULAR HGB CONC 31.2 g/dL (32.0-36.0); MEAN CORPUSCULAR VOLUME 87.5 fL (80.0-94.0); MEAN PLATELET VOLUME 10.1 fL (7.4-11.4); MONOCYTES % (AUTO) 6.5 %; NEUTROPHILS % (AUTO) 77.6 %; PLT - PLATELET COUNT 186 10^3/uL (130-450); RED BLOOD COUNT 3.99 10^6/uL (4.70-6.10); RED CELL DISTRIBUTION WIDTH 25.2 % (12.0-15.0); WHITE BLOOD COUNT 33.9 x10^3/uL (4.8-10.8)
[2021-06-22 10:07] LABS: SLIDE REVIEW? Indicated
[2021-06-22 10:08] LABS: ABNORMAL LYMPHS % (MANUAL) 0 %; CALCIUM 7.5 mg/dL (8.5-10.3); LYMPHOCYTES % (MANUAL) 0 %; MAGNESIUM 2.2 mg/dL (1.7-2.8)
[2021-06-22 10:38] LABS: BAND NEUTROPHILS % (MANUAL) 20 %; EOSINOPHILS # (MANUAL) 1.4 10^3/uL (0-0.7); LYMPHOCYTES # (MANUAL) 0.7 10^3/uL (1.5-3.5); METAMYELOCYTES % (MANUAL) 1 %; MONOCYTES # (MANUAL) 3.4 10^3/uL (0.0-1.0); MYELOCYTES % (MANUAL) 1 %; NEUTROPHILS # (MANUAL) 27.8 10^3/uL (1.5-6.6); REACTIVE LYMPHS % (MANUAL) 2 %
[2021-06-22 10:39] LABS: DIFFERENTIAL COMMENT MANUAL DIFFERENTIAL; RBC MORPHOLOGY (MULTIPLE) 4+ ANISOCYTOSIS (NORMAL)
[2021-06-22] MEDS: polyethylene glycoL 3350 17 GM PACKET PO SCH (11:42)
--- NOTE | 2021-06-22 15:45 | CONSULTATION NOTE ---
Palliative Care Consultation - Referral Referring Provider: Dr. Yuni Dorado Time of Visit: 11:45-1300 Referral setting: Hospitalized patient Referral Reason: Met Pancreatic Cancer to Liver/Lungs; FTT/Goals of care - Information Sources Records reviewed: RN notes reviewed, Previous records reviewed Exam limitations: Clinical condition (patient drifting; but able to engage in conversation; appropriately tearful) - History of Present Illness Brief History of Present Illness: This is a 70-year-old gentleman who presented originally with abdominal pain, that was radiating around the right flank and mid lower back. He was having night sweats and dark urine. This was the Thanksgiving nacny, he continued to progress until he showed up in the emergency room, where he did have a temp, did receive a CT scan that did show a pancreatic mass and multiple liver masses compatible with malignancy and liver mets. He also has had persistent elevated LFTs, and now even more so with Worsening leukocytosis. Does have a history of DVT and PE related to his pancreatic cancer, currently on Eliquis. He has been having declining functional status with increased pain, nausea, and was aware of his poor prognosis. He was unable to make it to his first treatment or port placement, because of his declining status. He has had a 40 pound weight loss, increasing difficulty with eating secondary stomach pain, has been using pancreatic enzymes. In the emergency room he was started on antibiotics, chest x-ray showed no acute abnormalities, he did receive a ultrasound that showed no evidence of biliary obstruction so was admitted to the hospital. Palliative care has been asked to meet with patient regarding goals of care. Had been scheduled to meet with an outpatient that was admitted through the ED. Medical/Surgical History - Past Medical History Cardiovascular: reports: Hypertension, Deep vein thrombosis, Pulmonary embolism Respiratory: reports: Shortness of breath Neuro: None Endocrine/Autoimmune: reports: None GI: reports: Other (Metastatic pancreatic cancer.) : reports: None HEENT: reports: None Psych: reports: Depression, Anxiety Musculoskeletal: reports: None Derm: reports: Other (hx of basal cell on nose) MRSA Hx?: No - Past Surgical History General: reports: Other (Bilateral inguinal hernia repair.) Derm: reports: Skin cancer surgery Social History - Living Situation Living arrangement: At home Living Situation: Alone Support System: Patient lives in apartment, by himself. He does have the support of a long-term girlfriend of 16 years, who has been helping with his care needs recently. He has been retired for 6 years. He previously worked for [employer] for 16 years. He was originally for 26 years, he is his of congestive heart failure. He has a daughter Herminia who is in [place], and a son Bj who is in [place]. They are expected to come on Sunday. He has 5 grandchildren. Family History - Family History Family History: Mother: , Cancer (cervical cancer hx), Father: Medications/Allergies - Medications Active Medication List: Active Medications Acetaminophen (Acetaminophen 325 Mg Tablet) 650 mg PO Q4HR PRN PRN Reason: Pain 1 to 4 Last Admin: 06/22/21 08:09 Dose: 650 mg Apixaban (Apixaban 5 Mg Tablet) 5 mg PO BID [facility] Last Admin: 06/22/21 08:09 Dose: 5 mg Bupropion HCl (Bupropion Sr 100 Mg Tablet) 200 mg PO DAILY [facility] Last Admin: 06/22/21 08:09 Dose: 200 mg Cefepime HCl 2 gm/ Sodium (Chloride) 100 mls @ 200 mls/hr IV Q8H [facility] Last Infusion: 06/22/21 11:27 Dose: Infused Metronidazole (Flagyl 500 Mg/100 Ml) 500 mg in 100 mls @ 100 mls/hr IV TID [facility] Last Infusion: 06/22/21 14:35 Dose: Infused Vancomycin HCl 1 gm/ Sodium (Chloride) 250 mls @ 167 mls/hr IV Q12H [facility] Last Infusion: 06/22/21 06:29 Dose: Infused Morphine Sulfate (Morphine 2 Mg/Ml Carpuject) 2 mg IVP Q2HR PRN PRN Reason: Pain 8 to 10 Ondansetron HCl (Ondansetron 4 Mg/2 Ml Vial) 4 mg IVP Q6HR PRN PRN Reason: Nausea / Vomiting Last Admin: 06/21/21 21:43 Dose: 4 mg Ondansetron HCl (Ondansetron Odt 4 Mg Tablet) 4 mg TL Q6HR PRN PRN Reason: Nausea / Vomiting Oxycodone HCl (Oxycodone 5 Mg Tablet) 5 mg PO Q4HR PRN PRN Reason: Pain 5 to 7 Last Admin: 06/22/21 15:00 Dose: 5 mg Polyethylene Glycol (Polyethylene Glycol 3350 17 Gm Packet) 17 gm PO DAILY [facility] Last Admin: 06/22/21 11:42 Dose: 17 gm Sodium Chloride (Sodium Chloride Flush 0.9% 10 Ml Syringe) 10 ml IVP PRN PRN PRN Reason: NEEDED PER PROVIDER ORDERS Last Admin: 06/21/21 21:43 Dose: 10 ml Sodium Chloride (Sodium Chloride Flush 0.9% 10 Ml Syringe) 10 ml IVP 0100,0900,1700 [facility] Last Admin: 06/22/21 03:28 Dose: 10 ml buPROPion [Wellbutrin Sr] 200 mg PO DAILY 05/19/21 Melatonin/Pyridoxine [Melatonin 5 mg Tablet] 1 each PO DAILY PM 06/07/21 oxyCODONE [Roxicodone] 5 - 10 mg PO Q4HR PRN 06/21/21 - Allergies Allergies/Adverse Reactions: Allergies Allergy/AdvReac Type Severity Reaction Status Date / Time codeine Allergy Rash Verified 06/21/21 10:41 Review of Systems - Constitutional Constitutional: reports: Fatigue (worsening), Chills, Malaise, Weakness, Poor appetite, Weight loss (40 pounds over last several months; more acute wt. loss in last few days) - Ears, Nose & Throat Ears, Nose & Throat: reports: Dry mouth, Other (voice weak) - Cardiovascular Cardiovascular: reports: Lightheadedness, Exertional dyspnea, Decr. exercise tolerance - Respiratory Respiratory: denies: SOB at rest - Gastrointestinal Gastrointestinal: reports: Abdominal pain, Diarrhea, Bloating, Poor appetite, Early satiety - Genitourinary Genitourinary: reports: Other (dark brown urine) - Musculoskeletal Musculoskeletal: reports: Muscle pain, Stiffness, Limited range of motion, Muscle weakness, Other (has been mostly bedbound since admission; functional dec line acute over last week) - Integumentary Integumentary: reports: Dryness - Neurological Neurological: reports: General weakness, Memory problems - Psychiatric Psychiatric: reports: Depression, Anxiety - Endocrine Endocrine: reports: Intolerance to cold - Hematologic/Lymphatic Hematologic/Lymph: reports: Anemia, Blood clots, Other (leukocytosis worsening) - All Other Systems All Other Systems: reports: Reviewed and negative Physical Exam - Vital Signs Vital Signs: Vital Signs x48h Temp Pulse Resp BP BP Pulse Ox 06/22/21 15:42 36.3 C L 82 20 105/53 L 95 06/22/21 13:00 36.5 C 81 16 110/50 L 93 - Physical Exam General Appearance: positive: No acute distress, Cachetic, Other Eyes Bilateral: negative: No scleral icterus ENT: positive: Dry mucous membranes Neck: positive: Trachea midline Cardiovascular: positive: Other (poor venous access) Respiratory: positive: No respiratory distress Abdomen: positive: Tenderness Skin: positive: Jaundice, Dryness, Bruising Extremities: positive: No pedal edema Neurologic/Psychiatric: positive: Oriented x3, Weakness, Depressed mood/affect, Flat affect Palliative Care - POLST Patient has POLST: No POLST Status: DNR Pain: Location (RUQ tenderness;), Severity (reports was controlled on oxycodone 5 mg 4x a day at home; reports at this time using PRN okay.) Tiredness/Fatigue: Severe (7-10) Drowsiness/Sedation: Moderate (4-6) Nausea: Moderate (4-6) (controlled with ondansetron; worsens with eating) Anorexia: Severe (7-10), Weight loss Depression: Mild (1-3) Anxiety: Moderate (4-6) Feelings of wellbeing/Perceived Quality of Life: Poor, Worsening Sleep: Other (sleeping most of the time) Constipation: Yes, Opoid induced Performance Status: Patient has been having declining functional status secondary to muscle wasting and weakness. More acutely over the last week, needing ambulance transfer to his MAC appointment on Sunday. Patient is mostly been bedbound, has been able to ambulate few steps to the chair. - Palliative Care Discussion: Patient's understanding is he does have stage IV pancreatic cancer, and has deteriorated much quicker than he was expecting. He is feeling weak, worsening functional status, and awaiting the arrival of his daughter and son on Sunday. It originally thought they were coming in on Sunday. We are on a phone call with his significant other Toya, she is a caregiver by training and has had experience with hospice and end of life. Both are somewhat overwhelmed by just how quickly things have changed, they have been together 16 years, though do not live together. She has been providing more support and caregiving with his decline. She does understand that he is going to need more help, even if transitioning to hospice will need a caregiving plan. After discussing patient' s goals of care, declining status, most likely at this point would not be a candidate given his high bilirubin, bedbound status, and quick decline for further treatment. He would like to complete hospitalization and treatment, to see if there is any improvement. After much discussion in the context of what is most important to him, spending time with family, he does understand the burden some component of moving forward and getting Port-A-Cath placed I suspect he would not even be a candidate at this point as he is doing so poorly, nor be able to tolerate treatment. He would like to be comfortable, spend time with his children, recognizing this is most likely going to continue fairly quickly. Did introduce hospice as a layer support, reviewed the continuum of care of hospice care, visiting nurses, after needs, equipment, focus on comfort, and support for his family. His children are expected to stay 4 days, though unclear given his decline. He is quite distressed at what they will find when they see him, he has lost a lot of weight, and though they have been included, they do not understand the severity currently of his illness.Though suspect with transition to hospice, it will be much more clear. Patient is done no end-of-life planning, did discuss the need for durable power of health energy attorney, at this point in time would default to his children equally, Bj and September, need for financial power of energy attorney, as well as any other estate planning needs. Patient does not have any advanced directives, will complete POLST tomorrow after time to process currently but is going on. Given patient's severity of illness, and transition to hospice would recommend allowing significant other in for support for both of them Results - Lab Results Lab results reviewed: Yes Fish Bones: 06/22/21 09:48 06/22/21 09:48 Lab and Imaging Results: Lab Results x24hrs 06/22/21 06/22/21 06/21/21 Range/Units 09:48 09:48 18:22 WBC 33.9 H (4.8-10.8) x10^3/uL RBC 3.99 L (4.70-6.10) 10^6/uL Hgb 10.9 L (14.0-18.0) g/dL Hct 34.9 L (42.0-52.0) % MCV 87.5 (80.0-94.0) fL MCH 27.3 (27.0-31.0) pg MCHC 31.2 L (32.0-36.0) g/dL RDW 25.2 H (12.0-15.0) % Plt Count 186 (130-450) 10^3/uL MPV 10.1 (7.4-11.4) fL Neut # (Auto) Not Reportable Lymph # (Auto) Not Reportable Ray # (Auto) Not Reportable Eos # (Auto) Not Reportable Baso # (Auto) Not Reportable Absolute Nucleated RBC Not Reportable Total Counted 100 Band Neuts % (Manual) 20 H (0 - 10) % Reactive Lymphs % (Man) 2 % Abnorm Lymph % (Manual) 0 % Metamyelocytes % 1 H ( - 0) % Myelocytes % 1 H ( - 0) % Nucleated RBC % Not Reportable Neutrophils # (Manual) 27.8 H (1.5-6.6) 10^3/uL Lymphocytes # (Manual) 0.7 L (1.5-3.5) 10^3/uL Monocytes # (Manual) 3.4 H (0.0-1.0) 10^3/uL Eosinophils # (Manual) 1.4 H (0-0.7) 10^3/uL Basophils # (Manual) 0.0 (0-0.1) 10^3/uL Differential Comment MANUAL DIFFERENTIAL Manual Slide Review Indicated RBC Morph Micro Appear 4+ ANISOCYTOSIS (NORMAL) Sodium 130 L (135-145) mmol/L Potassium 4.0 (3.5-5.0) mmol/L Chloride 98 L (101-111) mmol/L Carbon Dioxide 20 L (21-32) mmol/L Anion Gap 12.0 (6-13) BUN 26 H (6-20) mg/dL Creatinine 1.0 (0.6-1.2) mg/dL Estimated GFR (MDRD) 74 L (>89) Glucose 115 H (70-100) mg/dL Lactic Acid 1.9 (0.5-2.2) mmol/L Calcium 7.5 L (8.5-10.3) mg/dL Magnesium 2.2 (1.7-2.8) mg/dL 06/21/21 Range/Units 15:38 WBC (4.8-10.8) x10^3/uL RBC (4.70-6.10) 10^6/uL Hgb (14.0-18.0) g/dL Hct (42.0-52.0) % MCV (80.0-94.0) fL MCH (27.0-31.0) pg MCHC (32.0-36.0) g/dL RDW (12.0-15.0) % Plt Count (130-450) 10^3/uL MPV (7.4-11.4) fL Neut # (Auto) Lymph # (Auto) Ray # (Auto) Eos # (Auto) Baso # (Auto) Absolute Nucleated RBC Total Counted Band Neuts % (Manual) (0 - 10) % Reactive Lymphs % (Man) % Abnorm Lymph % (Manual) % Metamyelocytes % ( - 0) % Myelocytes % ( - 0) % Nucleated RBC % Neutrophils # (Manual) (1.5-6.6) 10^3/uL Lymphocytes # (Manual) (1.5-3.5) 10^3/uL Monocytes # (Manual) (0.0-1.0) 10^3/uL Eosinophils # (Manual) (0-0.7) 10^3/uL Basophils # (Manual) (0-0.1) 10^3/uL Differential Comment Manual Slide Review RBC Morph Micro Appear (NORMAL) Sodium (135-145) mmol/L Potassium (3.5-5.0) mmol/L Chloride (101-111) mmol/L Carbon Dioxide (21-32) mmol/L Anion Gap (6-13) BUN (6-20) mg/dL Creatinine (0.6-1.2) mg/dL Estimated GFR (MDRD) (>89) Glucose (70-100) mg/dL Lactic Acid 2.3 H (0.5-2.2) mmol/L Calcium (8.5-10.3) mg/dL Magnesium (1.7-2.8) mg/dL Impression and Recommendations - Palliative Care Impression: This is an unfortunate 70-year-old gentleman who has metastatic pancreatic cancer involving liver and lungs, presenting with elevated leukocytosis, work-up so far has not revealed any underlying infection. He does have worsening liver function, which would preclude him receiving chemotherapy at this point. After much discussion with patient and his girlfriend, given his priority to & what remaining time he has with his children and family, will transition to hospice on discharge. He is hoping to have some improvement as a result of hospitalization, but does understand he is experiencing progressive disease. Palliative care meeting with patient to establish goals of care Recommendations/Counseling Done: 1. Pain of neoplastic origin. Patient reports intermittent oxycodone is currently controlling his pain, has been taking 3-4 in 24 hours with good control, will continue to monitor, may benefit from transition to fentanyl 12 mcg patch, at this time though pain is intermittent and mostly related to eating, short acting oxycodone would be appropriate. 2. Metastatic pancreatic cancer with liver and lung mets. Patient has had ongoing acute decline of function, decreased intake, worsening weight loss, and increasing bilirubin. Given patient's poor ECOG score, goals of care, will tra nsition to hospice on discharge. 3. Advanced care planning. Counseling provided regarding goals of care, anticipatory guidance, discussed continuum of care including hospice. Counseling provided regarding need for caregiving team, Toya is working on finding support regarding this. Discussed need for DPOA, will complete POLST tomorrow, patient's goals have been consistent with DNR, and transition to comfort focused care. Recommended patient continue with end-of-life planning documents, depending on his estate and needs. Is going to have his son oversee this. Gave oral permission to talk to son Bj Toth and Herminia Vega on patient's condition. Spoke with social work, to get DPOA form, and HIPAA form completed with appropriate notary and signatures. 75 minutes with greater than 50% of this done in counseling, family conference, anticipatory guidance, coordination of care with hospitalist and hospice team.
[2021-06-23] MEDS: SODIUM CHLORIDE FLUSH 0.9% 10 ML SYRINGE IVP SCH ×3 (00:36→16:31)
[2021-06-23] MEDS: CEFEPIME 2 GM in SODIUM CHLORIDE 0.9% MINIBAG 100 ML IV SCH ×2 (03:11→11:27)
[2021-06-23] MEDS: MORPHINE 2 MG/ML CARPUJECT IVP PRN ×2 (04:24→08:45)
[2021-06-23] MEDS: metroNIDAZOLE 500 MG/100 ML 500 MG/100 ML BAG IV SCH ×2 (06:01→13:38)
[2021-06-23] MEDS: VANCOMYCIN INJ 1 GM in SODIUM CHLORIDE 0.9% 250 ML IV SCH (06:02)
[2021-06-23 07:47] LABS: BASOPHILS % (AUTO) 0.6 %; EOSINOPHILS % (AUTO) 8.8 %; HCT - HEMATOCRIT 32.6 % (42.0-52.0); HGB - HEMOGLOBIN 10.3 g/dL (14.0-18.0); LYMPHOCYTES % (AUTO) 4.9 %; MEAN CORPUSCULAR HEMOGLOBIN 27.5 pg (27.0-31.0); MEAN CORPUSCULAR HGB CONC 31.6 g/dL (32.0-36.0); MEAN CORPUSCULAR VOLUME 86.9 fL (80.0-94.0); MEAN PLATELET VOLUME 10.4 fL (7.4-11.4); MONOCYTES % (AUTO) 6.6 %; NEUTROPHILS % (AUTO) 75.2 %; PLT - PLATELET COUNT 167 10^3/uL (130-450); RED BLOOD COUNT 3.75 10^6/uL (4.70-6.10); RED CELL DISTRIBUTION WIDTH 25.6 % (12.0-15.0)
[2021-06-23 07:57] LABS: ABNORMAL LYMPHS % (MANUAL) 0 %; CALCIUM 7.3 mg/dL (8.5-10.3); CREATININE 0.9 mg/dL (0.6-1.2); MAGNESIUM 2.2 mg/dL (1.7-2.8); POTASSIUM 4.3 mmol/L (3.5-5.0); WHITE BLOOD COUNT 35.5 x10^3/uL (4.8-10.8)
[2021-06-23 08:22] LABS: BAND NEUTROPHILS % (MANUAL) 15 %; EOSINOPHILS # (MANUAL) 2.1 10^3/uL (0-0.7); LYMPHOCYTES # (MANUAL) 0.7 10^3/uL (1.5-3.5); LYMPHOCYTES % (MANUAL) 2 %; METAMYELOCYTES % (MANUAL) 2 %; MONOCYTES # (MANUAL) 2.5 10^3/uL (0.0-1.0); NEUTROPHILS # (MANUAL) 29.5 10^3/uL (1.5-6.6)
[2021-06-23 08:23] LABS: DIFFERENTIAL COMMENT MANUAL DIFFERENTIAL
[2021-06-23] MEDS: ONDANSETRON 4 MG/2 ML VIAL IVP PRN (08:36)
[2021-06-23] MEDS: polyethylene glycoL 3350 17 GM PACKET PO SCH (08:39)
[2021-06-23] MEDS: SODIUM CHLORIDE FLUSH 0.9% 10 ML SYRINGE IVP PRN ×3 (08:45→13:38)
[2021-06-23] MEDS: APIXABAN 5 MG TABLET PO SCH ×2 (09:59→20:38)
[2021-06-23] MEDS: buPROPion SR 100 MG TABLET PO SCH (09:59)
[2021-06-23] MEDS: MORPHINE SOL 10 MG/0.5 ML ORAL SYRINGE PO PRN ×2 (11:27→13:18)
[2021-06-23] MEDS: LORazepam 1 MG TABLET PO PRN ×2 (11:28→18:22)
--- NOTE | 2021-06-23 13:23 | CONSULTATION NOTE ---
Palliative Care Follow Up - Referral Referring Provider: Dr. Manriquez Time of Visit: 12-1300 Referral setting: Hospitalized patient Referral Reason: Met Pancreatic Cancer with Liver/Lung mets/ Goals of care - Information Sources Records reviewed: Previous records reviewed History/Review of Systems obtained from: Patient, Other (hospitalist) Exam limitations: Clinical condition (easily drifts off) - History of Present Illness Update Brief HPI Update: Please see HPI 06/22/21. Meeting with patient in follow-up fromVisit yesterday. Patient is more drift he, more lethargic. He has required a David catheter, denies overall pain, most discomfort is from David catheter at this point in time. He requested he give it a few hours to see if it settled down. Patient denies shortness of breath, has continued to be mostly bedbound. He is taking bites of Jell-O.We did discuss in the context of advanced care planning (please see palliative care discussion) regarding with changes and son not coming till Sunday, recommendation to continue with Toya as his DPOA particularly in the context of transitioning to hospice. Patient denies any distress, does recognize things are going quickly, is hoping to see his children before he passes. Patient was admitted with leukocytosis, failure to thrive, with ongoing escalati on of WBC and bilirubin. No source of infection at this point in time identified. Past Medical History: Hypertension, DVT, PE, new diagnosis of metastatic pancreatic cancer with mets to liver and lung. Social History - Living Situation Living arrangement: At home Living Situation: Alone Support System: Patient lives in apartment, by himself. He does have the support of a long-term girlfriend of 16 years, who has been helping with his care needs recently. They have lived together on and off. He has been retired for 6 years. He previously worked for [employer] for 16 years. He was originally for 26 years, he is and his of congestive heart failure. He has a daughter September who is in [place], and a son Bj who is in [place]. They are expected to come on Sunday. He has 5 grandchildren. Medications/Allergies - Medications Active Medication List: Active Medications Acetaminophen (Acetaminophen 325 Mg Tablet) 650 mg PO Q4HR PRN PRN Reason: Pain 1 to 4 Last Admin: 06/22/21 20:05 Dose: 650 mg Apixaban (Apixaban 5 Mg Tablet) 5 mg PO BID [facility] Last Admin: 06/23/21 09:59 Dose: 5 mg Bupropion HCl (Bupropion Sr 100 Mg Tablet) 200 mg PO DAILY [facility] Last Admin: 06/23/21 09:59 Dose: 200 mg Cefepime HCl 2 gm/ Sodium (Chloride) 100 mls @ 200 mls/hr IV Q8H [facility] Last Infusion: 06/23/21 12:05 Dose: Infused Metronidazole (Flagyl 500 Mg/100 Ml) 500 mg in 100 mls @ 100 mls/hr IV TID [facility] Last Admin: 06/23/21 06:01 Dose: 100 mls/hr Vancomycin HCl 1 gm/ Sodium (Chloride) 250 mls @ 167 mls/hr IV Q12H [facility] Last Admin: 06/23/21 06:02 Dose: 167 mls/hr Lorazepam (Lorazepam 1 Mg Tablet) 1 mg PO Q6H PRN PRN Reason: Anxiety Last Admin: 06/23/21 11:28 Dose: 1 mg Morphine Sulfate (Morphine Marichuy 10 Mg/0.5 Ml Oral Syringe) 5 mg PO Q2HR PRN PRN Reason: PAIN Last Admin: 06/23/21 11:27 Dose: 5 mg Ondansetron HCl (Ondansetron 4 Mg/2 Ml Vial) 4 mg IVP Q6HR PRN PRN Reason: Nausea / Vomiting Last Admin: 06/23/21 08:36 Dose: 4 mg Ondansetron HCl (Ondansetron Odt 4 Mg Tablet) 4 mg TL Q6HR PRN PRN Reason: Nausea / Vomiting Polyethylene Glycol (Polyethylene Glycol 3350 17 Gm Packet) 17 gm PO DAILY [facility] Last Admin: 06/23/21 08:39 Dose: Not Given Sodium Chloride (Sodium Chloride Flush 0.9% 10 Ml Syringe) 10 ml IVP PRN PRN PRN Reason: NEEDED PER PROVIDER ORDERS Last Admin: 06/23/21 11:28 Dose: 10 ml Sodium Chloride (Sodium Chloride Flush 0.9% 10 Ml Syringe) 10 ml IVP 0100, 0900,1700 [facility] Last Admin: 06/23/21 08:45 Dose: 10 ml buPROPion [Wellbutrin Sr] 200 mg PO DAILY 05/19/21 Melatonin/Pyridoxine [Melatonin 5 mg Tablet] 1 each PO DAILY PM 06/07/21 oxyCODONE [Roxicodone] 5 - 10 mg PO Q4HR PRN 06/21/21 - Allergies Allergies/Adverse Reactions: Allergies Allergy/AdvReac Type Severity Reaction Status Date / Time codeine Allergy Rash Verified 06/21/21 10:41 Review of Systems - Constitutional Constitutional: reports: Fatigue (worsening), Chills, Malaise, Weakness, Poor appetite, Weight loss (40 pounds over last several months; more acute wt. loss in last few days) - Ears, Nose & Throat Ears, Nose & Throat: reports: Dry mouth, Other (voice weak) - Cardiovascular Cardiovascular: reports: Lightheadedness, Exertional dyspnea, Decr. exercise tolerance - Respiratory Respiratory: denies: SOB at rest - Gastrointestinal Gastrointestinal: reports: Abdominal pain, Bloating, Poor appetite (eating bites of Jellos only) - Genitourinary Genitourinary: reports: Other (dark brown urine; david catheter recently placed; causing some irritation) - Musculoskeletal Musculoskeletal: reports: Muscle pain, Stiffness, Limited range of motion, Muscle weakness, Other (has been mostly bedbound since admission; functional d ecline acute over last week) - Integumentary Integumentary: reports: Dryness - Neurological Neurological: reports: General weakness, Memory problems - Psychiatric Psychiatric: reports: Depression, Anxiety - Endocrine Endocrine: reports: Intolerance to cold - Hematologic/Lymphatic Hematologic/Lymph: reports: Anemia, Blood clots, Other (leukocytosis worsening) - All Other Systems All Other Systems: reports: Reviewed and negative Physical Exam - Vital Signs Vital Signs: Vital Signs x48h Temp Pulse Resp BP BP Pulse Ox 06/23/21 12:04 36.3 C L 93 20 100/54 L 96 06/23/21 08:14 36.5 C 88 20 113/63 92 06/23/21 06:04 36.5 C 87 17 112/48 L 92 - Physical Exam General Appearance: positive: No acute distress, Lethargic (drifts in and out; able to answer questions), Cachetic Eyes Bilateral: negative: No scleral icterus ENT: positive: Dry mucous membranes Neck: positive: Trachea midline Cardiovascular: positive: Other (poor venous access) Respiratory: positive: No respiratory distress Abdomen: positive: Tenderness Skin: positive: Jaundice, Dryness, Bruising Extremities: positive: No pedal edema Neurologic/Psychiatric: positive: Disoriented to time, Weakness, Depressed mo od/affect, Flat affect Palliative Care - POLST Patient has POLST: Yes POLST Status: DNR, Comfort Measures (completed POLST DNAR/DNI and comfort care in reflection of earlier decisions for transitio nhome) Pain: Pain improved, Location (david catheter; reports abd. pain better) Tiredness/Fatigue: Severe (7-10) Drowsiness/Sedation: Moderate (4-6) Nausea: None Anorexia: Severe (7-10), Weight loss Dyspnea: None Depression: None Anxiety: Mild (1-3) Feelings of wellbeing/Perceived Quality of Life: Poor, Worsening Sleep: Other (sleeping on and off) Constipation: No Performance Status: Patient continues to weaken with needing assist with bed mobility. Patient needing assistance with feeding of Jell-O. Patient has been bedbound, patient has had an acute decline over the last couple weeks. - Palliative Care Discussion: Revisited DPOA, had originally wanted Toya as she was going to be here, when filled out form did put his son Anson Toth, but discussed in the context of decision making in the next few days, will need Toya's assistance. He does trust her, he said it was mostly just because he was "my son". Given patient may need for sign for hospice and many decisions may need to be made prior to his arrival, we agreed to put Toya back as primary, and Anson is secondary and can change that up when they arrived. Spoke with Toya regarding need for equipment delivery prior to hospice transition. She did not realize he has continued to decline quickly. She will go over the apartment and clean it out, and it is a studio and has much furniture in it.This was communicated back to the hospice team, to arrange for delivery of equipment in the morning. Also update given to Toya regarding patient's current status, as he continues to decline. She is worried the children are not going to make it out here, we did discuss his prognosis is most likely days to week. She will follow-up with the children to see if they want to try and get her sooner. There are many complications in the context of traveling from the [facility]. Met with Glynn, discussed the POLST in the context of focusing on comfort, having a at home, and spending time with family. We discussed this is reflective of the "purple bracelet" that he had filled up earlier, and conversation for transition to hospice. Patient feels at peace, denies any need for jew or spiritual support. Reports he is not anxious. POLST filled out with DN AR/DNI and comfort focused treatment. Results - Lab Results Lab results reviewed: Yes Fish Bones: 06/23/21 07:37 06/23/21 07:37 Lab and Imaging Results: Lab Results x24hrs 06/23/21 06/23/21 Range/Units 07:37 07:37 WBC 35.5 H* (4.8-10.8) x10^3/uL RBC 3.75 L (4.70-6.10) 10^6/uL Hgb 10.3 L (14.0-18.0) g/dL Hct 32.6 L (42.0-52.0) % MCV 86.9 (80.0-94.0) fL MCH 27.5 (27.0-31.0) pg MCHC 31.6 L (32.0-36.0) g/dL RDW 25.6 H (12.0-15.0) % Plt Count 167 (130-450) 10^3/uL MPV 10.4 (7.4-11.4) fL Neut # (Auto) Not Reportable Lymph # (Auto) Not Reportable [place] # (Auto) Not Reportable Eos # (Auto) Not Reportable Baso # (Auto) Not Reportable Absolute Nucleated RBC Not Reportable Total Counted 100 Band Neuts % (Manual) 15 H (0 - 10) % Abnorm Lymph % (Manual) 0 % Metamyelocytes % 2 H ( - 0) % Nucleated RBC % Not Reportable Neutrophils # (Manual) 29.5 H (1.5-6.6) 10^3/uL Lymphocytes # (Manual) 0.7 L (1.5-3.5) 10^3/uL Monocytes # (Manual) 2.5 H (0.0-1.0) 10^3/uL Eosinophils # (Manual) 2.1 H (0-0.7) 10^3/uL Basophils # (Manual) 0.0 (0-0.1) 10^3/uL Differential Comment MANUAL DIFFERENTIAL Sodium 134 L (135-145) mmol/L Potassium 4.3 (3.5-5.0) mmol/L Chloride 104 (101-111) mmol/L Carbon Dioxide 19 L (21-32) mmol/L Anion Gap 11.0 (6-13) BUN 25 H (6-20) mg/dL Creatinine 0.9 (0.6-1.2) mg/dL Estimated GFR (MDRD) 84 L (>89) Glucose 99 (70-100) mg/dL Calcium 7.3 L (8.5-10.3) mg/dL Magnesium 2.2 (1.7-2.8) mg/dL Impression and Recommendations - Palliative Care Impression: This is an unfortunate gentleman who has metastatic pancreatic cancer involving liver and lungs, continues to deteriorate most likely related to progressive disease in liver. He does have elevated leukocytosis, so far is not revealed any underlying infection. He is more lethargic, eating just small amounts of Jell-O, pain is currently controlled. Patient is to discharge on hospice on tomorrow. Patient understands regarding impending transition, is hoping for a peaceful passing. Recommendations/Counseling Done: 1. Advanced care planning. Discussion with patient regarding his quick decline, need for DPOA who is able to participate before his son gets here, he is in a greement and is quite trusting of Bgwremi to provide that support and information. Did speak with Tawnee looking at transition, will clean out apartment so equipment can be delivered. Update given regarding patient's ongoing decline, she will reach out to children to see if they can come earlier. Counseling provided for patient regarding POLST DNR/DNI and comfort focused treatment. This was completed and copy to hospice as well as social work for BLS transfer tomorrow. Coordination of care with social work to update DPOA, hospitalist and anticipatory guidance provided to patient and significant other. 75 minutes with greater than 50% of this done in counseling regarding goals of care, follow-up on transition to hospice any questions, coordination with hospice team for transition with equipment, services, and need for BLS transfer.Completion of POLST and updated DPOA.
--- NOTE | 2021-06-23 17:44 | PROVIDER PROGRESS NOTE ---
Subjective - Prog Note Date Prog Note Date: 06/23/21 - Subjective Subjective: Reports feeling anxious this morning and is tearful. His pain is controlled overall. He is ready to go home and be with his family. Current Medications - Current Medications Current Medications: Active Medications Acetaminophen (Acetaminophen 325 Mg Tablet) 650 mg PO Q4HR PRN PRN Reason: Pain 1 to 4 Last Admin: 06/22/21 20:05 Dose: 650 mg Apixaban (Apixaban 5 Mg Tablet) 5 mg PO BID [facility] Last Admin: 06/23/21 09:59 Dose: 5 mg Bupropion HCl (Bupropion Sr 100 Mg Tablet) 200 mg PO DAILY [facility] Last Admin: 06/23/21 09:59 Dose: 200 mg Lorazepam (Lorazepam 1 Mg Tablet) 1 mg PO Q6H PRN PRN Reason: Anxiety Last Admin: 06/23/21 11:28 Dose: 1 mg Morphine Sulfate (Morphine Marichuy 10 Mg/0.5 Ml Oral Syringe) 5 mg PO Q2HR PRN PRN Reason: PAIN Last Admin: 06/23/21 13:18 Dose: 5 mg Ondansetron HCl (Ondansetron 4 Mg/2 Ml Vial) 4 mg IVP Q6HR PRN PRN Reason: Nausea / Vomiting Last Admin: 06/23/21 08:36 Dose: 4 mg Ondansetron HCl (Ondansetron Odt 4 Mg Tablet) 4 mg TL Q6HR PRN PRN Reason: Nausea / Vomiting Polyethylene Glycol (Polyethylene Glycol 3350 17 Gm Packet) 17 gm PO DAILY [facility] Last Admin: 06/23/21 08:39 Dose: Not Given Sodium Chloride (Sodium Chloride Flush 0.9% 10 Ml Syringe) 10 ml IVP PRN PRN PRN Reason: NEEDED PER PROVIDER ORDERS Last Admin: 06/23/21 13:38 Dose: 10 ml Sodium Chloride (Sodium Chloride Flush 0.9% 10 Ml Syringe) 10 ml IVP 0100,0900,1700 [facility] Last Admin: 06/23/21 16:31 Dose: 10 ml buPROPion [Wellbutrin Sr] 200 mg PO DAILY 05/19/21 Melatonin/Pyridoxine [Melatonin 5 mg Tablet] 1 each PO DAILY PM 06/07/21 oxyCODONE [Roxicodone] 5 - 10 mg PO Q4HR PRN 06/21/21 Objective - Vital Signs/Intake & Output Reviewed Vital Signs: Yes Vital Signs: Vital Signs x48h Temp Pulse Resp BP Pulse Ox 06/23/21 16:32 36.2 C L 98 20 106/50 L 94 06/23/21 12:04 36.3 C L 93 20 100/54 L 96 Intake & Output: Intake & Output 06/20/21 06/21/21 06/22/21 06/23/21 23:59 23:59 23:59 23:59 Intake Total 3763.63 3150 1160 Output Total 029 644 1848 Balance 3438.63 2250 110 - Objective General Appearance: positive: No acute distress, Lethargic Eyes Bilateral: negative: No scleral icterus Respiratory: positive: No respiratory distress Abdomen: positive: Tenderness (Right upper quadrant.) Skin: positive: Warm, Dry, Other (Jaundiced.) Extremities: positive: Pedal edema (+1 edema in left lower extremity.) Neurologic/Psychiatric: negative: Disoriented to person, Disoriented to place - Lab Results Fish Bones: 06/23/21 07:37 06/23/21 07:37 Other Labs: Lab Results x24hrs 06/23/21 06/23/21 Range/Units 07:37 07:37 WBC 35.5 H* (4.8-10.8) x10^3/uL RBC 3.75 L (4.70-6.10) 10^6/uL Hgb 10.3 L (14.0-18.0) g/dL Hct 32.6 L (42.0-52.0) % MCV 86.9 (80.0-94.0) fL MCH 27.5 (27.0-31.0) pg MCHC 31.6 L (32.0-36.0) g/dL RDW 25.6 H (12.0-15.0) % Plt Count 167 (130-450) 10^3/uL MPV 10.4 (7.4-11.4) fL Neut # (Auto) Not Reportable Lymph # (Auto) Not Reportable [place] # (Auto) Not Reportable Eos # (Auto) Not Reportable Baso # (Auto) Not Reportable Absolute Nucleated RBC Not Reportable Total Counted 100 Band Neuts % (Manual) 15 H (0 - 10) % Abnorm Lymph % (Manual) 0 % Metamyelocytes % 2 H ( - 0) % Nucleated RBC % Not Reportable Neutrophils # (Manual) 29.5 H (1.5-6.6) 10^3/uL Lymphocytes # (Manual) 0.7 L (1.5-3.5) 10^3/uL Monocytes # (Manual) 2.5 H (0.0-1.0) 10^3/uL Eosinophils # (Manual) 2.1 H (0-0.7) 10^3/uL Basophils # (Manual) 0.0 (0-0.1) 10^3/uL Differential Comment MANUAL DIFFERENTIAL Sodium 134 L (135-145) mmol/L Potassium 4.3 (3.5-5.0) mmol/L Chloride 104 (101-111) mmol/L Carbon Dioxide 19 L (21-32) mmol/L Anion Gap 11.0 (6-13) BUN 25 H (6-20) mg/dL Creatinine 0.9 (0.6-1.2) mg/dL Estimated GFR (MDRD) 84 L (>89) Glucose 99 (70-100) mg/dL Calcium 7.3 L (8.5-10.3) mg/dL Magnesium 2.2 (1.7-2.8) mg/dL ABX Reporting Has patient been on IV antibiotics over the past 48 hours?: Yes Assessment/Plan - Problem List (1) SIRS (systemic inflammatory response syndrome) Impression: The initial concern was for sepsis but there is no evidence of infection after 48 hours. All cultures have been negative. Suspect is likely to SIRS related to his underlying malignancy. We will discontinue antibiotics and the plan will be to discharge him home tomorrow on hospice. (2) Pancreatic cancer metastasized to liver Impression: He unfortunately has metastatic pancreatic cancer. He is now agreeable to hospice. He cannot be discharged home today as his home is not set up for him yet. Hospital bed will be delivered tomorrow and hospice will be admitting in the afternoon. The plan will be to discharge him tomorrow morning to home on hospice. We will switch his pain medications to oral Roxanol. We'll also start him on Ativan as needed. Antibiotics and IV fluids have been discontinued. We have also placed a Serrano catheter. (3) DVT (deep venous thrombosis) Impression: He is agreeable to taking Eliquis for the time being and I discussed with him that this can be discontinued over next few days to decrease his pill burden. Qualifiers: DVT location: lower extremity Affected thrombotic vein of extremity: unspecified vein of extremity Chronicity: acute Laterality: left Qualified Code(s): I82.402 - Acute embolism and thrombosis of unspecified deep veins of left lower extremity (4) Severe protein-calorie malnutrition Impression: This is secondary to his pancreatic cancer. We are focusing on his comfort now.
[2021-06-24] MEDS: MORPHINE SOL 10 MG/0.5 ML ORAL SYRINGE PO PRN ×3 (01:10→14:23)
[2021-06-24] MEDS: SODIUM CHLORIDE FLUSH 0.9% 10 ML SYRINGE IVP SCH ×3 (01:11→09:16)
[2021-06-24] MEDS: ONDANSETRON 4 MG/2 ML VIAL IVP PRN (01:29)
[2021-06-24 07:54] VITALS: BP 99/39
--- NOTE | 2021-06-24 08:13 | Discharge Plan ---
Discharge Plan Problem Reviewed?: Yes Disposition: 50 Hospice/Home DC/Xfer Condition: Poor Diet: Regular Health Concerns: You were admitted to the hospital because there was concern that you may have had an infection given your white blood cell count was significantly elevated. We treated you with antibiotics and IV fluids. After 2 days in the hospital, there has been no evidence of infection. We suspect her white blood cell count is elevated due to the stress on her body from the cancer. We had the palliative care providers to meet with you and the plan is to now get you home on hospice to spend time with your family. The focus is on your comfort. Plan of Treatment: We felt that stopping your Eliquis would be of benefit to you to decrease your pill burden. We have sent prescriptions into your pharmacy for pain medication as well as anxiety medication. A prescription has been sent for morphine and lorazepam.Hospice will be prescribing her pain medications Care Goals: The goal is to focus on your comfort. Assessment: The patient and family are in agreement of the treatment plan. Additional Instructions or Follow Up instructions: You will follow-up with hospice this afternoon. Follow-Up Care: Hospice No Smoking: If you smoke, Please STOP! Call for help. Follow-up with: Fannie Brennan PA-C [Primary Care Provider] -
--- NOTE | 2021-06-24 08:17 | DISCHARGE SUMMARY ---
"Discharge Summary Admit Date: 06/21/21 Discharge Date: 06/24/21 Discharging Provider: Alo Manriquez Primary Care Provider: Fannie Brennan Code Status: Do Not Attempt Resuscitation Condition at Discharge: Poor Discharge Disposition: 50 Hospice/Home DC/Xfer - DIAGNOSES Admission Diagnoses: Sepsis Pancreatic cancer metastasized to liver DVT Discharge Diagnoses with Status of Each Condition: SIRS - ongoing. Pancreatic cancer metastasized to liver - ongoing. DVT - stable. Severe protein calorie malnutrition - stable. - HPI History of Present Illness: This is a 70-year-old male with a past medical history significant for metastatic pancreatic cancer who [place] [facility] due to [place]. He went to [place] [facility] [place] to get a port in anticipation of starting chemotherapy. They noted he was quite lethargic and weak and sent him to the emergency department for evaluation. The patient states he has felt weak for months but has progressed over the past few weeks since his diagnosis of the pancreatic cancer. He has encouraged himself to try and eat as much as possible but has had limited p.o. intake due to nausea. He does have diffuse abdominal pain but states it is relatively controlled at this time. No chest pain or dyspnea. He normally ambulates on his own but has just gotten weaker and more sedentary. He is hoping to undergo palliative chemotherapy in hopes of prolonging his life enough to see his family in a couple of weeks. He reports dysuria but states that has been present for months. He has no cough or chills or fever. He has been taking Eliquis which was prescribed for a left lower extremity DVT. He feels like his left leg edema is improving. In the emergency department, he was noted of a white count of 37,000 with bands present. His lactate was elevated at 3.3. He was given broad-spectrum antibiotics and chest x-ray was obtained which showed no acute normalities. Right upper quadrant ultrasound was obtained which showed no evidence of biliary obstruction. Given the above findings, medicine was consulted for admission. I did discuss goals of care with the patient and he would like to be DNR. - CONSULTS | PROCEDURES Consultations: Palliative Care - HOSPITAL COURSE Hospital Course: The patient was admitted to the floor for suspected sepsis. He was treated empirically with vancomycin, cefepime, Flagyl IV. Chest x-ray, urinalysis revealed no evidence of infection. Blood cultures have been negative for more than 48 hours now. It was felt that he had SIRS secondary to his pancreatic cancer. Palliative care was consulted to help assist with goals of care. The patient and his family ultimately decided to focus on his comfort and he agreed to transition to hospice. He will be admitted by hospice this afternoon. No prescriptions were sent as hospice will be prescribing the morphine and lorazepam. I have also asked him to discontinue the Eliquis after we discussed the risks and benefits of continuing it. - ALLERGIES Allergies/Adverse Reactions: Allergies Allergy/AdvReac Type Severity Reaction Status Date / Time codeine Allergy Rash Verified 06/21/21 10:41 - MEDICATIONS Home Medications: Ambulatory Orders Medication Instructions Recorded Confirmed Ondansetron Odt [Zofran Odt] 4 mg TL Q6H PRN #30 tablet 05/27/21 06/21/21 oxyCODONE [Roxicodone] 5 - 10 mg PO Q4HR PRN 06/21/21 06/21/21 LORazepam [Ativan] 1 mg PO Q6H PRN tablet 06/24/21 Morphine Oral Soln [Roxanol] 5 mg PO Q2HR PRN 06/24/21 - PHYSICAL EXAM AT DISCHARGE General Appearance: positive: No acute distress, Lethargic Eyes Bilateral: negative: No scleral icterus Respiratory: positive: No respiratory distress. negative: Wheezes, Rales Cardiovascular: positive: Regular rate & rhythm Abdomen: positive: Tenderness (Right upper quadrant and epigastric tenderness.). negative: Guarding, Rebound Skin: positive: Warm, Dry, Other (Jaundiced.) Extremities: positive: Pedal edema (+1 edema in left lower extremity.) Neurologic/Psychiatric: negative: Disoriented to person, Disoriented to place Physical Exam Other/Comments: Vital Signs - 24 hr 06/24/21 06/24/21 01:36 07:53 Temperature 36.3 C L 36.6 C Heart Rate [ 81 84 Brachial] Respiratory 16 22 Rate Blood Pressure 99/51 L 99/39 L [Right Brachial artery] O2 Saturation 93 96 Oxygen O2 Source Room air - LABS Result Diagrams: 06/23/21 07:37 06/23/21 07:37 - DIAGNOSTIC IMAGING Diagnostic Imaging Results: Final report reviewed - FOLLOW UP Follow Up: He will be following up with hospice this afternoon. - TIME SPENT Time Spent in Discharge (Minutes): 31"
[2021-06-24] MEDS: buPROPion SR 100 MG TABLET PO SCH (09:16)
[2021-06-24] MEDS: polyethylene glycoL 3350 17 GM PACKET PO SCH (09:16)
[2021-06-24] MEDS: SODIUM CHLORIDE FLUSH 0.9% 10 ML SYRINGE IVP PRN (09:16)
[2021-06-24] MEDS: APIXABAN 5 MG TABLET PO SCH (09:16)
[2021-06-24] MEDS: LORazepam 1 MG TABLET PO PRN (09:37)
== END 2021-06-24 15:05 | disposition hospice, home (50) | DRG 435 ==
LOC: ED 10:29 → MS2 16:16 → EEVIPCON 16:16
PROVIDERS: ADMIT Internal Medicine; ATTEND Internal Medicine
DX: A41.9 Sepsis, unspecified organism (principal); C25.9 Malignant neoplasm of pancreas, unspecified; E43 Unspecified severe protein-calorie malnutrition; E86.0 Dehydration; Z20.822 Contact with and (suspected) exposure to COVID-19; C78.7 Secondary malignant neoplasm of liver and intrahepatic bile duct; I82.402 Acute embolism and thrombosis of unspecified deep veins of left lower extremity; R65.10 Systemic inflammatory response syndrome (SIRS) of non-infectious origin without acute organ dysfunction; R64 Cachexia; C78.02 Secondary malignant neoplasm of left lung; C78.01 Secondary malignant neoplasm of right lung; K59.03 Drug induced constipation; T40.2X5A Adverse effect of other opioids, initial encounter; G89.3 Neoplasm related pain (acute) (chronic); D64.9 Anemia, unspecified; F32.A Depression, unspecified; F41.9 Anxiety disorder, unspecified; R30.0 Dysuria; Z66 Do not resuscitate; Z74.01 Bed confinement status; Z79.01 Long term (current) use of anticoagulants; Z79.899 Other long term (current) drug therapy; Z80.49 Family history of malignant neoplasm of other genital organs; Z85.828 Personal history of other malignant neoplasm of skin; Z86.711 Personal history of pulmonary embolism; Z87.891 Personal history of nicotine dependence; Z88.5 Allergy status to narcotic agent
CPT/HCPCS: 36415; 71045; 76705; 80048; 80053; 81001; 83605; 83735; 85025; 87040; 87086; 87631; 96361; 96365; 96375; 99223; 99233; 99285; A9270; J3370; J7120; J8499; 0202U; 80202

== ENCOUNTER 2021-06-21 14:10 | Outpatient (CLI) | payer MEDICARE | END 2021-06-21 14:11 | disposition home or self-care (01) | LOC: PC 14:10 | PROVIDERS: ATTEND Nurse Practitioner Adult Health | DX: Z53.9 Procedure and treatment not carried out, unspecified reason (principal) ==

== ENCOUNTER 2021-06-24 15:03 | Outpatient (CLI) | payer MEDICARE, MEDICAID | END 2021-06-24 15:04 | disposition home or self-care (01) | LOC: EMS 15:03 | PROVIDERS: ATTEND Internal Medicine | DX: Z51.5 Encounter for palliative care (principal) | CPT/HCPCS: A0425; A0428 ==